=== PATIENT | male | born 1990 | race African-American/Black ===

== ENCOUNTER 2020-08-01 16:52 | Outpatient (REF) | payer OTHER, SELFPAY ==
[2020-08-01 18:20] LABS: Glucose Urine UA NEG (NEG); Leukocyte Esterase Urine NEG (NEG); Nitrite Urine NEG (NEG); PH 7.5 (5.0-8.0); Urine Blood NEG (NEG); Urine Ketones NEG (NEG); Urine Protein NEG (NEG-TRACE)
[2020-08-01 18:28] LABS: Appearance Urine CLEAR; Color Urine YELLOW
[2020-08-01 18:40] LABS: Lithium 0.66 mmol/L (0.60-1.20)
[2020-08-01 18:43] LABS: Anion Gap 14 (12-20); Blood Urea Nitrogen 13 mg/dL (9-16); Calcium 9.6 mg/dL (8.4-10.2); Carbon Dioxide 29 mmol/L (22-29); Chloride 104 mmol/L (96-108); Estimated Glomerular Filt Rate > 60; Glucose Random 82 mg/dL (60-115); Potassium 4.5 mmol/l (3.3-5.1); Sodium 142 mmol/L (135-145)
[2020-08-02 12:00] LABS: CT PCR NOT DETECTED (Not Detect.); NG PCR NOT DETECTED (Not Detect.)
[2020-08-04 08:52] LABS: HIV AB/AG Nonreactive (Nonreactive); HIV Num 1 0.06 S/CO (0.00-0.99)
[2020-08-06 05:07] LABS: Syphilis Screen Nonreactive (Nonreactive)
== END 2020-08-01 16:53 | disposition home or self-care (01) ==
LOC: HO.LAB 16:52
PROVIDERS: PCP Internal Medicine; Visit Provider Internal Medicine
DX: F31.9 Bipolar disorder, unspecified (principal); F90.9 Attention-deficit hyperactivity disorder, unspecified type; Z11.3 Encounter for screening for infections with a predominantly sexual mode of transmission
CPT/HCPCS: 80048; 80178; 81003; 86780; 87389; 87491; 87591

== ENCOUNTER 2020-08-18 10:12 | Outpatient (REF) | payer OTHER, SELFPAY ==
[2020-08-18 14:59] LABS: TSH reflex Free T4 1.44 mIU/mL (0.32-4.0)
[2020-08-19 21:47] LABS: Transglutaminase IgA 1 U/mL
[2020-08-20 05:26] LABS: Gliadin Deamidated IgA Ab 11 Units; Gliadin Deamidated IgG Ab 4 Units
== END 2020-08-18 10:13 | disposition home or self-care (01) ==
LOC: HO.10HDL 10:12
PROVIDERS: Visit Provider Internal Medicine Gastroenterology
DX: K58.2 Mixed irritable bowel syndrome (principal)
CPT/HCPCS: 36415; 83516; 84443

== ENCOUNTER 2020-12-29 10:15 | Outpatient (REF) | payer OTHER, SELFPAY ==
[2020-12-29 11:53] LABS: Lithium 0.74 mmol/L (0.60-1.20)
[2020-12-29 12:10] LABS: Thyroid Stimulating Hormone 1.51 uIU/mL (0.32-4.0)
[2020-12-29 12:21] LABS: Anion Gap 12 (12-20); Blood Urea Nitrogen 12 mg/dL (9-16); Carbon Dioxide 31 mmol/L (22-29); Chloride 105 mmol/L (96-108); Estimated Glomerular Filt Rate > 60; Potassium 4.6 mmol/L (3.3-5.1); Sodium 143 mmol/L (135-145)
== END 2020-12-29 10:16 | disposition home or self-care (01) ==
LOC: HO.LAB 10:15
PROVIDERS: PCP Internal Medicine; Visit Provider Psychiatry & Neurology Psychiatry
DX: Z79.899 Other long term (current) drug therapy (principal)
CPT/HCPCS: 36415; 80051; 80178; 82310; 82565; 84443; 84520

== ENCOUNTER 2021-06-09 15:08 | Outpatient (REF) | payer OTHER, SELFPAY | END 2021-06-09 15:09 | disposition home or self-care (01) | LOC: HO.LAB 15:08 | PROVIDERS: PCP Internal Medicine; Visit Provider Internal Medicine | DX: Z13.89 Encounter for screening for other disorder (principal) ==

== ENCOUNTER → 2021-09-29 16:43 | Outpatient (REF) | payer OTHER, SELFPAY | LOC: HO.SL 16:43 | PROVIDERS: PCP Internal Medicine; Visit Provider Internal Medicine | DX: R06.83 Snoring (principal) | CPT/HCPCS: 95806 ==

== ENCOUNTER 2022-07-13 14:43 | Outpatient (REF) | payer OTHER, SELFPAY ==
[2022-07-14 05:13] LABS: HIV AB/AG Nonreactive (Nonreactive); HIV Num 1 0.08 S/CO (0.00-0.99)
[2022-07-19 16:21] LABS: Chlamydia Pneumoniae IgA <1:16 titer (<1:16); Chlamydia Pneumoniae IgM <1:10 titer (<1:10); Chlamydia Psittaci IgA <1:16 titer (<1:16); Chlamydia Psittaci IgG <1:64 titer (<1:64); Chlamydia Psittaci IgM <1:10 titer (<1:10); Chlamydia Trachomatis IgA <1:16 titer (<1:16); Chlamydia Trachomatis IgG <1:64 titer (<1:64); Chlamydia Trachomatis IgM <1:10 titer (<1:10)
== END 2022-07-13 14:44 | disposition home or self-care (01) ==
LOC: HO.LAB 14:43
PROVIDERS: PCP Internal Medicine; Visit Provider Internal Medicine
DX: Z11.3 Encounter for screening for infections with a predominantly sexual mode of transmission (principal)
CPT/HCPCS: 36415; 86631; 86632; 87389

== ENCOUNTER 2022-08-10 11:46 | Emergency (ER) | payer OTHER, SELFPAY ==
[2022-08-10 11:54] VITALS: BP 121/73; PULSE 88; RESP 18; TEMP 36.3; O2SAT 96; BMI 30.2
[2022-08-10 12:37] LABS: Strep A Nucleic Acid Negative (Negative)
--- NOTE | 2022-08-10 14:25 | ED_ITS ---
HPI - General Adult General Chief complaint: Dental/Oral Stated complaint: Strep throat Time Seen by Provider: 08/10/22 14:00 Source: patient Mode of arrival: ambulatory Limitations: no limitations History of Present Illness HPI narrative: Patient is a 32-year-old male with PMH of bipolar presenting for 2 days of sore throat. Patient reports that he has been having some difficulty swallowing, though denies any difficulty managing secretions. Patient denies any other symptoms including fever, nausea, vomiting, diarrhea, constipation, vision changes, cough, ear pain. No known sick contacts. Onset (ago): day(s) (2) Location: mouth (Throat) Radiation: non-radiation Severity: moderate Quality: stabbing and aching Pain Consistency: intermittent Exacerbating factors: eating Treatments prior to arrival: none Related Data Allergies Allergy/AdvReac Type Severity Reaction Status Date / Time No Known Allergies Allergy Unverified 07/10/20 18:34 Review of Systems Review of Systems: Constitutional : No Weight loss, No Fever, No Chills, No Fatigue, No Malaise ENT/Mouth : + sore throat, No Rhinorrhea Eyes: No Eye Pain, No Swelling, No Redness Cardiovascular : No Chest Pain, No SOB, No Dyspnea on Exertion, No Orthopnea, No Edema, No Palpitations Respiratory : No Cough, No Sputum, No Wheezing Gastrointestinal : No Nausea, No Vomiting, No Diarrhea, No Constipation, No abdominal Pain, No Hematochezia, No Melena Genitourinary : No Dysuria, No Urinary Frequency, No Hematuria, Musculoskeletal : No joint pain, No Myalgias, No Joint Swelling Skin : No Skin Lesions, No rash Neuro : No Weakness, No Numbness, No Dizziness, No Headache Psych : No Anxiety/Panic, No Depression Heme/Lymph: No Bruising, No Bleeding,No Lymphadenopathy All other systems reviewed and are negative PMFSH Past Medical History Attestation statement: The following information was validated with the patient. Source: old records reviewed and nursing notes reviewed Social History Social History Advance Directives: No Advance Directives Information Provided: No Physical Exam ED Vital Signs: Vital Signs - 24 hr 08/10/22 11:54 Temperature 97.4 F Pulse Rate 88 Respiratory Rate 18 Blood Pressure 121/73 Pulse Oximetry 96 Oxygen Delivery Method Room Air BMI result Body Mass Index 30.2 vss Appearance: Alert.? Oriented X3.? No acute distress.? Speaking in full sentences, controlling secretions well. Head: Normocephalic, atraumatic, no step-offs or deformities Eyes: Pupils equal, round and reactive to light.? ENT: Bilateral erythematous tonsils, without exudates, uvula midline .?External ears normal, TMs normal bilaterally and EAC's normal. No pain with manipulation of external ears bilaterally. No mastoid tenderness. Submandibular lymphadenopathy bilaterally. Neck: Normal inspection.? Neck supple.? CVS: Normal heart rate and rhythm.? Pulses normal.? Respiratory: No respiratory distress.? Breath sounds normal.? Abdomen: Soft and nontender.? Skin: Skin warm and dry.? Normal skin color.? Normal skin turgor.? Extremities: No lower extremity edema. 5/5 strength to bilateral upper and lower extremities Neuro: Oriented X 3.? No motor deficit.? No sensory deficit. Steady gait. Course Reevaluation(s) Reevaluation #1: Patient eloped. Medical Decision Making [facility] Narrative Medical decision making narrative: 2:15 32-year-old male with a PMH of bipolar presenting today for 2 days of sore throat and difficulty swallowing. Patient's denies any fevers, cough, shortness of breath, chest pain, nausea, vomiting, diarrhea, any sick contacts. DDX: This is likely viral pharyngitis. He rapid throat swab to rule out strep throat, and a Monospot will be performed to rule out mono. Unlikely epiglottitis, peritonsillar abscess. Plan: - Rapid throat swab to rule out group a strep - mono spot to rule out mononucleosis - expected discharge home with supportive care Medical Records Medical records reviewed: Yes I reviewed the patient's medical records. Lab Data Lab results reviewed: Yes I reviewed the patient's lab results. Labs: Lab Results 08/10/22 Range/Units 12:02 S. pyogenes GrpA RAJANI Negative (Negative) Discharge Plan Discharge Clinical Impression: Acute viral pharyngitis Patient Disposition: Elopement Instructions: Pharyngitis (ED) Additional Instructions: He presented to the emergency department for a sore throat. Eight throughout swab was performed which ruled out strep throat. A Monospot was performed which ruled out Garza. This is likely a viral cause of your spore throat. Please continue adequate fluid intake. Take Tylenol as needed for pain.
== END 2022-08-10 15:22 | disposition left against medical advice (07) ==
PROVIDERS: Emergency Provider Emergency Medicine; PCP Internal Medicine
DX: J02.9 Acute pharyngitis, unspecified (principal); Z79.899 Other long term (current) drug therapy
CPT/HCPCS: 36415; 87651; 99282; 99283

== ENCOUNTER 2022-12-22 15:41 | Outpatient (REF) | payer OTHER, SELFPAY ==
[2022-12-22 17:53] LABS: Appearance Urine Clear; Color Urine Yellow; Glucose Urine UA Negative (Negative); Leukocyte Esterase Urine Negative (Negative); Nitrite Urine Negative (Negative); PH 6.5 (5.0-9.0); Specific Gravity - Urine 1.025 (1.005-1.025); Urine Blood Negative (Negative); Urine Ketones Negative (Negative); Urine Protein Negative (Neg-Trace)
[2022-12-23 07:15] LABS: CT PCR NOT DETECTED (Not Detect.); NG PCR NOT DETECTED (Not Detect.)
[2022-12-24 09:14] LABS: Syphilis Screen Nonreactive (Nonreactive)
[2022-12-24 09:39] LABS: HIV AB/AG Nonreactive (Nonreactive); HIV Num 1 0.06 S/CO (0.00-0.99); ~HepC Num1 0.13 S/CO (0.00-0.79); ~Hepatitis C Antibody Nonreactive (Nonreactive)
== END 2022-12-22 15:42 | disposition home or self-care (01) ==
LOC: HO.LAB 15:41
PROVIDERS: PCP Internal Medicine; Visit Provider Internal Medicine
DX: Z11.3 Encounter for screening for infections with a predominantly sexual mode of transmission (principal)
CPT/HCPCS: 0353U; 81003; 86780; 86803; 87389

== ENCOUNTER 2024-01-16 10:05 | Outpatient (REF) | payer OTHER, SELFPAY ==
--- NOTE | ~2024-01-16 | FL_ITS ---
EXAMINATION: XR FLUOROSCOPY UPPER GI WITH AIR CLINICAL INFORMATION: Reflux; dysphasia. COMPARISON: None. Correlation made with CT abdomen and pelvis 04/07/2020. TECHNIQUE: Fluoroscopic air contrast upper GI examination was performed utilizing standard techniques with thin and thick barium and effervescent granules. Numerous spot images were obtained. FINDINGS: Dual and single contrast images of the esophagus demonstrate normal caliber, contour, and mucosal pattern. No evidence of stricture, mass, or ulcerations identified. Esophageal peristalsis was normal. Probable small type I hiatus hernia. A small amount of gastroesophageal reflux is seen in the distal esophagus. Dual contrast and single contrast images of the stomach demonstrated normal contour. There are multiple tiny areas of contrast pooling in the fundus the stomach that may represents small superficial apthous ulcers. No masses are present. Mild rugal fold thickening is present. Findings suggest gastritis. Contrast freely passed into the gastric antrum and duodenal bulb without delay. Single and air-contrast images of the duodenal bulb demonstrate no abnormality. The duodenal sweep has a normal appearance, course, and mucosal fold appearance. No malrotation. The imaged proximal jejunum has a normal fold pattern and caliber. FLUOROSCOPY TIME: 2 minutes 40 seconds Number of Spot Images: 12 Number of Cine: 8 DOSE AREA PRODUCT: 2404 uGy-m2 (microgray-meter squared) FL/FL upper GI w air IMPRESSION: 1. Mild gastroesophageal reflux. 2. Multiple tiny foci of contrast pooling in the fundus of the stomach that may represent small superficial apthous ulcers. Findings suggest erosive gastritis. Recommend correlation with EGD. 3. Small type I hiatus hernia. This procedure was performed by Leon Schwartz PA-C, and supervised by Dr. Mehta
== END 2024-01-16 10:06 | disposition home or self-care (01) ==
LOC: HO.XRAY 10:05
PROVIDERS: PCP Internal Medicine; Visit Provider Internal Medicine
DX: R13.10 Dysphagia, unspecified (principal)
CPT/HCPCS: 74246

== ENCOUNTER → 2024-01-16 10:10 | Outpatient (BNV) | payer OTHER, SELFPAY | PROVIDERS: PCP Internal Medicine; Visit Provider Physician Assistant Surgical | DX: R13.10 Dysphagia, unspecified (principal); K21.9 Gastro-esophageal reflux disease without esophagitis | CPT/HCPCS: 74246 ==

== ENCOUNTER 2024-01-18 16:01 | Outpatient (REF) | payer OTHER, SELFPAY ==
[2024-01-24 15:47] LABS: H Pylori Breath Test Negative (Negative)
== END 2024-01-18 16:02 | disposition home or self-care (01) ==
LOC: HO.LNP 16:01
PROVIDERS: PCP Internal Medicine; Referring Provider Internal Medicine; Visit Provider Nurse Practitioner Family
DX: K21.9 Gastro-esophageal reflux disease without esophagitis (principal); R13.10 Dysphagia, unspecified; R10.13 Epigastric pain; R14.0 Abdominal distension (gaseous); R10.10 Upper abdominal pain, unspecified; R15.9 Full incontinence of feces; K58.0 Irritable bowel syndrome with diarrhea; K58.1 Irritable bowel syndrome with constipation; R74.01 Elevation of levels of liver transaminase levels
CPT/HCPCS: 83013; 99202

== ENCOUNTER 2024-01-18 16:01 | Outpatient (AMB) | payer OTHER, SELFPAY ==
--- NOTE | 2024-01-18 16:02 | MHC.OFFVIS ---
Intake Vital Signs 01/18/24 16:04 Height 5 ft 9 in Weight 211 lb 10.3 oz BMI 31.3 BP 112/69 Blood Pressure Location Lt brachial Position Sitting Pulse 72 Pulse Source Pulse Oximeter Pulse Oximetry (%) 99 Oxygen Delivery Method Room Air Intake Visit Reasons: dysphagia Intake Note: pt here for dysphagia, abdominal pain, no vomiting or nausea. Information Interpreted: non-clinical & clinical Accompanied by: Self / Same As Patient Allergies No Known Allergies Allergy (Unverified 07/10/20 18:34) HPI dysphagia HPI Details 33-year-old male with no significant past medical history is here today for initial consultation. Patient was sent to us by his PCP. Patient had upper GI series done couple days ago, results are pending. Patient reports severe epigastric discomfort postprandially. Patient feels burning sensation in the upper abdomen. Occasional postprandial loose stools, however no diarrhea. Patient denies melena, hematochezia, unintentional weight loss or ribbon like stools. No family history of inflammatory bowel disease. Patient also reports pain occasionally and right upper quadrant and left upper quadrant. Patient reports postprandial abdominal bloating. Not on any particular diet. Has not noticed if any particular food trigger his symptoms. Patient denies symptoms starting suddenly. Patient reports that symptoms getting worse over time. Patient reports dyspepsia without dysphagia or odynophagia. [facility] Social History (Updated 01/18/24 @ 16:08 by Tyra Marshall MA) Household Members: Family Alcohol intake: current Alcohol intake frequency: holidays/special occasions only Patient Tobacco Use Status: Never used Tobacco Review of Systems Const Denies weight gain and Denies weight loss ENT Reports no additional complaints, Denies dysphagia and Denies odynophagia Card Reports no additional complaints Resp Reports no additional complaints GI Reports abdominal pain (Epigastric), Denies belching, Denies melena, Reports bloating, Denies change in bowel habits, Denies dysphagia, Denies excessive flatus, Denies dyspepsia, Reports heartburn, Denies diarrhea, Denies nausea, Denies odynophagia and Denies vomiting Reports no additional complaints Musc Reports no additional complaints Neuro Reports no additional complaints Psych Reports no additional complaints Endo Reports no additional complaints Physical Exam Vital Signs: Last Vital Signs Pulse 72 01/18/24 16:04 BP 112/69 01/18/24 16:04 Pulse Ox 99 01/18/24 16:04 Oxygen Delivery Method Room Air 01/18/24 16:04 BMI result Body Mass Index 31.3 Const General: healthy appearing and no acute distress Nutritional Appearance: obese Orientation/consciousness: patient oriented x3 Resp Effort & Inspection: normal respiratory effort, able to speak in complete sentences, no tracheal deviation and symmetric chest movement Auscultation: clear to auscultation bilaterally Cardio Rate: regular rate GI Inspection: Yes normal to inspection, No distended and Yes obesity Palpation (GI): Soft to palpation, not firm, nontender and No hepatosplenomegaly present Auscultation: normal bowel sounds General: Yes no CVA tenderness Back/Spine/Pelvis Back: no CVA tenderness Skin General skin exam: elasticity normal, turgor normal and dry skin Neuro General: patient oriented x3 Psych Appearance: grossly normal Mental Status: mental status grossly normal Results Reviewed Results Reviewed: UPPER GI SERIES 01/16/2024 IMPRESSION: 1. Mild gastroesophageal reflux. 2. Multiple tiny foci of contrast pooling in the fundus of the stomach that may represent small superficial apthous ulcers. Findings suggest erosive gastritis. Recommend correlation with EGD. 3. Small type I hiatus hernia. Assessment & Plan Assessment & Plan (1) Postprandial epigastric pain: Code(s): R10.13 - Epigastric pain (2) Postprandial abdominal bloating: Code(s): R14.0 - Abdominal distension (gaseous) (3) Postprandial diarrhea: Code(s): K52.9 - Noninfective gastroenteritis and colitis, unspecified (4) GERD (gastroesophageal reflux disease): Code(s): K21.9 - Gastro-esophageal reflux disease without esophagitis Qualifiers: Esophagitis presence: esophagitis presence not specified Qualified Code(s): K21.9 - Gastro-esophageal reflux disease without esophagitis (5) Abdominal bloating: Code(s): R14.0 - Abdominal distension (gaseous) (6) Abdominal pain: Code(s): R10.9 - Unspecified abdominal pain Qualifiers: Abdominal location: upper abdomen, unspecified Qualified Code(s): R10.10 - Upper abdominal pain, unspecified Plan Will do H pylori testing in the office today and treat empirically if positive. Will start patient on PPI and H2 samuel. Patient was instructed to avoid dietary triggers and late night snacking. Staying upright for minimal 3 hours after meals discussed with patient. Will check for celiac, rule out pancreatitis, malabsorption. Will check vitamin B12, folate, vitamin-D level. Check fecal calprotectin and CRP to rule out IBD. I will see patient in 5 weeks, sooner on as needed basis. He is agreeable to this plan and verbalizes understanding of instructions. He was given the opportunity to ask questions and all questions answered. Thank you for allowing me to participate in his care Orders: Orders H Pylori Breath Test 01/19/24 K21.9 - Gastro-esophageal reflux disease without esophagitis Calprotectin, Fecal 01/18/24 R15.9 - Full incontinence of feces Transglutaminase Ab IgG 01/18/24 R10.9 - Unspecified abdominal pain TSH reflex Free T4 01/18/24 K59.00 - Constipation, unspecified Lipase 01/18/24 R10.9 - Unspecified abdominal pain Vitamin B12 and Folate 01/18/24 R19.7 - Diarrhea, unspecified C Reactive Protein 01/18/24 K58.9 - Irritable bowel syndrome without diarrhea Transglutaminase IgA 01/18/24 R10.9 - Unspecified abdominal pain Liver Panel 01/18/24 R74.01 - Elevation of levels of liver transaminase levels Vitamin D 25-OH (D2 and D3) 01/18/24 E55.9 - Vitamin D deficiency, unspecified Medications: New omeprazole 20 mg PO DAILY 30 caps 3RF K21.9 - Gastro-esophageal reflux disease without esophagitis famotidine (Pepcid) 20 mg PO BEDTIME 30 tabs 3RF K21.9 - Gastro-esophageal reflux disease without esophagitis Coding Level of Care Code New Pt Level 4 (18751) Diagnoses Postprandial epigastric pain R10.13 Postprandial abdominal bloating R14.0 Postprandial diarrhea K52.9 Gastroesophageal reflux disease, unspecified whether esophagitis present K21.9 Esophagitis presence: esophagitis presence not specified Abdominal bloating R14.0 Pain of upper abdomen R10.10 Abdominal location: upper abdomen, unspecified Time Spent (min) 45 Comment 30 minutes spent with patient and additional 15 minutes spent reviewing his records
[2024-01-18 16:04] VITALS: BP 112/69; PULSE 72; O2SAT 99; BMI 31.3
== END 2024-01-18 16:50 | disposition home or self-care (01) ==
LOC: HO.HGI 16:01
PROVIDERS: PCP Internal Medicine; Referring Provider Internal Medicine; Visit Provider Nurse Practitioner Family
DX: R10.13 Epigastric pain (principal); R14.0 Abdominal distension (gaseous); K52.9 Noninfective gastroenteritis and colitis, unspecified; K21.9 Gastro-esophageal reflux disease without esophagitis; R10.10 Upper abdominal pain, unspecified
CPT/HCPCS: 99204

== ENCOUNTER 2024-02-02 15:25 | Outpatient (REF) | payer OTHER, SELFPAY ==
[2024-02-02 17:22] LABS: Alanine Aminotransferase 23 U/L (0-40); Albumin Level 4.4 g/dL (3.5-5.0); Alkaline Phosphatase 67 U/L (39-117); Aspartate Amino Transferase 20 U/L (5-37); Bilirubin Direct 0.2 mg/dL (0.0-0.5); Bilirubin Total 0.5 mg/dL (0.0-1.0); C Reactive Protein 0.41 mg/dL (< or = 0.50); Lipase 16 U/L (8-78); Total Protein 7.4 g/dL (6.5-8.0)
[2024-02-02 17:38] LABS: TSH reflex Free T4 0.95 uIU/mL (0.32-4.0)
[2024-02-02 17:51] LABS: Folate 13.4 ng/mL (> or = 4.0); Vitamin B12 631 pg/mL (200-900)
[2024-02-06 15:18] LABS: Vitamin D 25-OH, D2 <4 ng/mL; Vitamin D 25-OH, D3 40 ng/mL; Vitamin D 25-OH, Total 40 ng/mL (30-100)
[2024-02-07 14:58] LABS: Transglutaminase Ab IgG <1.0 U/mL; Transglutaminase IgA <1.0 U/mL
== END 2024-02-02 15:26 | disposition home or self-care (01) ==
LOC: HO.LAB 15:25
PROVIDERS: PCP Internal Medicine; Visit Provider Nurse Practitioner Family
DX: K59.00 Constipation, unspecified (principal); R10.9 Unspecified abdominal pain; R19.7 Diarrhea, unspecified; K58.9 Irritable bowel syndrome, unspecified; R74.01 Elevation of levels of liver transaminase levels; E55.9 Vitamin D deficiency, unspecified
CPT/HCPCS: 36415; 80076; 82306; 82607; 82746; 83690; 84443; 86140; 86364

== ENCOUNTER 2024-02-28 12:08 | Outpatient (AMB) | payer OTHER, SELFPAY ==
--- NOTE | 2024-02-28 12:27 | A.OFFVIS_ITS ---
Vital Signs 02/28/24 12:28 Height 5 ft 9 in Weight 205 lb 0.478 oz BMI 30.3 BP 118/59 L Blood Pressure Location Lt brachial Position Sitting Pulse 78 Intake Visit Reasons: 5 week follow up Intake Note: Constantine presents in the office as a 5 week follow up. CC: No concerns today at this time. Operating Cost Clerk Required: No Allergies copper Allergy (Mild, Verified 02/28/24 12:36) Unknown HPI HPI 5 week follow up: Details: LAST VISIT Postprandial epigastric pain Postprandial abdominal bloating Postprandial diarrhea GERD (gastroesophageal reflux disease) Abdominal bloating Abdominal pain Plan Will do H pylori testing in the office today and treat empirically if positive. Will start patient on PPI and H2 samuel. Patient was instructed to avoid dietary triggers and late night snacking. Staying upright for minimal 3 hours after meals discussed with patient. Will check for celiac, rule out pancreatitis, malabsorption. Will check vitamin B12, folate, vitamin-D level. Check fecal calprotectin and CRP to rule out IBD. I will see patient in 5 weeks, sooner on as needed basis. He is agreeable to this plan and verbalizes understanding of instructions. He was given the opportunity to ask questions and all questions answered. ? Thank you for allowing me to participate in his care Orders Orders H Pylori Breath Test 01/19/24 K21.9 Calprotectin, Fecal 01/18/24 R15.9 Transglutaminase Ab IgG 01/18/24 R10.9 TSH reflex Free T4 01/18/24 K59.00 Lipase 01/18/24 R10.9 Vitamin B12 and Folate 01/18/24 R19.7 C Reactive Protein 01/18/24 K58.9 Transglutaminase IgA 01/18/24 R10.9 Liver Panel 01/18/24 R74.01 Vitamin D 25-OH (D2 and D3) 01/18/24 E55.9 Medications New omeprazole 20 mg PO DAILY 30 caps 3RF K21.9 famotidine (Pepcid) 20 mg PO BEDTIME 30 tabs 3RF K21.9 TODAY'S VISIT Patient is here today for follow-up and to discuss lab results and upper GI series results. Patient states that he ran out of omeprazole and has not been on it for about a week or so. Patient states that when he started taking it he was feeling well. His symptoms of acid reflux improved. Patient no longer had dyspepsia. Patient reports also having better bowel movement after taking omeprazole. All of patient's blood work came back negative for any acute findings. H pylori negative. Upper GI series showed mild gastric reflux and multiple small areas in the fundus of the stomach questioning ulceration or inflammation. Patient denies any nausea or vomiting. Denies any other GI concerning symptoms. PFSH Surgical History (Updated 02/28/24 @ 12:36 by KIMO Shah) Hx of colonoscopy Social History Household Members: Family Alcohol intake: current Alcohol intake frequency: holidays/special occasions only Patient Tobacco Use Status: Never used Tobacco Review of Systems Const Denies weight gain and Denies weight loss ENT Reports no additional complaints, Denies dysphagia and Denies odynophagia Card Reports no additional complaints Resp Reports no additional complaints GI Denies abdominal pain, Denies belching, Denies melena, Denies bloating, Denies change in bowel habits, Denies dysphagia, Denies excessive flatus, Denies dyspepsia, Denies heartburn, Denies diarrhea, Denies loose stools, Denies nausea, Denies odynophagia and Denies vomiting Reports no additional complaints Musc Reports no additional complaints Neuro Reports no additional complaints Psych Reports no additional complaints Endo Reports no additional complaints Physical Exam Vital Signs: Last Vital Signs Pulse 78 02/28/24 12:28 BP 118/59 L 02/28/24 12:28 BMI result Body Mass Index 30.3 Const General: healthy appearing and no acute distress Nutritional Appearance: obese Orientation/consciousness: patient oriented x3 Resp Effort & Inspection: normal respiratory effort, able to speak in complete sentences, no tracheal deviation and symmetric chest movement Auscultation: clear to auscultation bilaterally Cardio Rate: regular rate GI Inspection: Yes normal to inspection, No distended and Yes obesity Palpation (GI): Soft to palpation, not firm, nontender and No hepatosplenomegaly present Auscultation: normal bowel sounds General: Yes no CVA tenderness Back/Spine/Pelvis Back: no CVA tenderness Skin General skin exam: elasticity normal, turgor normal and dry skin Neuro General: patient oriented x3 Psych Appearance: grossly normal Mental Status: mental status grossly normal Results Reviewed Results Reviewed: Laboratory Tests 02/02/24 15:33 Total Bilirubin 0.5 Direct Bilirubin 0.2 AST 20 ALT 23 Alkaline Phosphatase 67 C-Reactive Protein 0.41 Lipase 16 Vitamin B12 631 25-OH Vitamin D Total 40 Folate 13.4 TSH 0.95 Tiss Transglutamin IgG <1.0 Tiss Transglutamin IgA <1.0 UPPER GI SERIES 01/16/2024 FINDINGS: Dual and single contrast images of the esophagus demonstrate normal caliber, contour, and mucosal pattern. No evidence of stricture, mass, or ulcerations identified. Esophageal peristalsis was normal. Probable small type I hiatus hernia. A small amount of gastroesophageal reflux is seen in the distal esophagus. Dual contrast and single contrast images of the stomach demonstrated normal contour. There are multiple tiny areas of contrast pooling in the fundus the stomach that may represents small superficial apthous ulcers. No masses are present. Mild rugal fold thickening is present. Findings suggest gastritis. Contrast freely passed into the gastric antrum and duodenal bulb without delay. Single and air-contrast images of the duodenal bulb demonstrate no abnormality. The duodenal sweep has a normal appearance, course, and mucosal fold appearance. No malrotation. The imaged proximal jejunum has a normal fold pattern and caliber. FLUOROSCOPY TIME: 2 minutes 40 seconds Number of Spot Images: 12 Number of Cine: 8 DOSE AREA PRODUCT: 2404 uGy-m2 (microgray-meter squared) FL/FL upper GI w air IMPRESSION: 1. Mild gastroesophageal reflux. 2. Multiple tiny foci of contrast pooling in the fundus of the stomach that may represent small superficial apthous ulcers. Findings suggest erosive gastritis. Recommend correlation with EGD. 3. Small type I hiatus hernia. Assessment & Plan Assessment & Plan (1) Postprandial epigastric pain: Code(s): R10.13 - Epigastric pain (2) Postprandial abdominal bloating: Code(s): R14.0 - Abdominal distension (gaseous) (3) Postprandial diarrhea: Code(s): K52.9 - Noninfective gastroenteritis and colitis, unspecified (4) GERD (gastroesophageal reflux disease): Code(s): K21.9 - Gastro-esophageal reflux disease without esophagitis Qualifiers: Esophagitis presence: esophagitis presence not specified Qualified Code(s): K21.9 - Gastro-esophageal reflux disease without esophagitis (5) Abdominal bloating: Code(s): R14.0 - Abdominal distension (gaseous) (6) Abdominal pain: Code(s): R10.9 - Unspecified abdominal pain Qualifiers: Abdominal location: epigastric Qualified Code(s): R10.13 - Epigastric pain Plan Patient will continue omeprazole. Upper GI series showed mild contrast pooling in the phone this the stomach questioning superficial or SIRS versus inflammation. Patient will be sent for upper endoscopy to rule out gastritis, duodenitis, esophagitis, gastric or peptic ulcers. Patient was encouraged to avoid dietary triggers and late night snacking. Staying upright for minimum 3 hours after meals discussed with patient. Increase fluid intake and activity to promote better bowel motility. I will see patient after the procedure, sooner on as needed basis. Patient is agreeable to this plan and verbalizes understanding of instructions. He was given the opportunity to ask questions and all questions answered. Thank you for allowing me to participate in his care Medications: Refilled omeprazole 20 mg PO DAILY 90 caps 3RF K21.9 - Gastro-esophageal reflux disease without esophagitis Coding Level of Care Code Est Pt Level 4 (20588) Diagnoses Postprandial epigastric pain R10.13 Postprandial abdominal bloating R14.0 Postprandial diarrhea K52.9 Gastroesophageal reflux disease, unspecified whether esophagitis present K21.9 Esophagitis presence: esophagitis presence not specified Abdominal bloating R14.0 Epigastric pain R10.13 Abdominal location: epigastric Time Spent (min) 35 Comment 20 minutes spent with patient and additional 15 minutes spent reviewing his records
[2024-02-28 12:28] VITALS: BP 118/59; PULSE 78; BMI 30.3
== END 2024-02-28 14:03 | disposition home or self-care (01) ==
PROVIDERS: PCP Internal Medicine; Visit Provider Nurse Practitioner Family
DX: R10.13 Epigastric pain (principal); R14.0 Abdominal distension (gaseous); K52.9 Noninfective gastroenteritis and colitis, unspecified; K21.9 Gastro-esophageal reflux disease without esophagitis
CPT/HCPCS: 99214

== ENCOUNTER → 2024-02-28 12:08 | Outpatient (BNVA) | payer OTHER, SELFPAY | PROVIDERS: PCP Internal Medicine; Visit Provider Nurse Practitioner Family | DX: R10.13 Epigastric pain (principal); R14.0 Abdominal distension (gaseous); K52.9 Noninfective gastroenteritis and colitis, unspecified; K21.9 Gastro-esophageal reflux disease without esophagitis; Z79.899 Other long term (current) drug therapy | CPT/HCPCS: 99212 ==

== ENCOUNTER 2024-04-08 14:07 | Emergency (ER) | payer OTHER, SELFPAY ==
[2024-04-08 14:09] VITALS: BP 116/63; PULSE 78; RESP 17; TEMP 36.6; O2SAT 98; BMI 29.5
--- NOTE | 2024-04-08 14:10 | ED_ITS ---
HPI - General Adult General Chief complaint: General Medical Stated complaint: exposed to hepatitis Time Seen by Provider: 04/08/24 14:34 Source: patient Mode of arrival: ambulatory Limitations: no limitations History of Present Illness ED Provider: Payton Eduardo PA-C HPI narrative: Patient is a 33 year old assigned male at with no reported medical history presenting to the emergency department today with a sore throat and hepatitis exposure. Patient states that 1 hour prior to arrival in the ER today he thought he saw a tonsil stone, tried to remove it, and injured his throat. Patient states that he was also exposed to someone with hepatitis C. Patient states that had oral sex with the individual and intercourse (protected with condoms). Patient states that he wasn't told until after the sexual encounter that the individual was hepatitis C positive. Patient denies any dizziness, lightheadedness, abdominal pain, nausea, vomiting, fever, chills, blurry vision, double vision, loss of vision, chest pain, difficulty breathing, shortness of breath, back pain, night sweats, pain with urination, increased urinary frequency, increased urinary urgency, blood in his urine or stool, syncope or a near syncopal episode, bowel incontinence, bladder incontinence, or any other complaints at this time. Relieving factors: none Exacerbating factors: none Associated symptoms: denies other symptoms Treatments prior to arrival: none Related Data Home Medications ?Medication ?Instructions ?Recorded ?Confirmed cariprazine 4.5 mg capsule 4.5 mg PO DAILY 01/18/24 (Vraylar) doxycycline hyclate 100 mg tablet 100 mg PO BID 01/18/24 lamotrigine 200 mg tablet 200 mg PO DAILY 01/18/24 bupropion HCl 300 mg 24 hr tablet, 300 mg PO DAILY 02/28/24 extended release escitalopram oxalate 20 mg tablet 20 mg PO DAILY 02/28/24 Previous Rx's ?Medication ?Instructions ?Recorded famotidine 20 mg tablet (Pepcid) 20 mg PO BEDTIME #30 tabs 01/18/24 omeprazole 20 mg capsule,delayed 20 mg PO DAILY #90 caps 02/28/24 release doxycycline hyclate 100 mg tablet 100 mg PO BID 7 days #14 tabs 04/08/24 penicillin V potassium 500 mg 500 mg PO BID 10 days #20 tabs 04/08/24 tablet Allergies Allergy/AdvReac Type Severity Reaction Status Date / Time copper Allergy Mild Unknown Verified 04/08/24 14:11 Review of Systems 2 Constitutional: Constitutional: Reports no additional constitutional complaints, Denies chills, Denies fever(s) and Denies night sweats Eyes: Eyes: Reports no additional eye complaints, Denies blurry vision, Denies change in vision, Denies diplopia, Denies eye discharge, Denies loss of vision and Denies eye pain ENT: Denies dizziness and Reports sore throat Cardiovascular: Cardiovascular: Reports no additional cardiovascular complaints, Denies chest pain, Denies lightheadedness, Denies Loss of Consciousness and Denies dyspnea Respiratory: Respiratory: Reports no additional respiratory complaints and Denies dyspnea Gastrointestinal: Gastrointestinal: Reports no additional gastrointestinal complaints, Denies abdominal pain, Denies melena, Denies hematochezia, Denies change in bowel habits and Denies change in stool character Genitourinary: Genitourinary: Reports no additional male genitourinary complaints, Denies hematuria, Denies oliguria, Denies difficulty urinating, Denies dysuria, Denies urinary frequency, Denies urinary hesitancy, Denies urinary incontinence and Denies urinary urgency Musculoskeletal: Musculoskeletal: Reports no additional musculoskeletal complaints, Denies numbness and Denies tingling Neurologic: Denies dizziness, Denies loss of vision, Denies numbness and Denies tingling Psychiatric: Psychiatric: Reports no additional psychiatric complaints Endocrine: Endocrine: Reports no additional endocrine complaints Hematologic/Lymphatic: Hematologic/Lymphatic: Reports no additional hematologic/lymphatic complaints Allergic/Immunologic: Allergic/Immunologic: Reports no additional allergic/immunologic complaints [facility] Past Medical History Attestation statement: The following information was validated with the patient. Source: old records reviewed and nursing notes reviewed Surgical History Hx of colonoscopy Social History Social History Household Members: Family Alcohol intake: current Alcohol intake frequency: holidays/special occasions only Patient Tobacco Use Status: Never used Tobacco Advance Directives: No Advance Directives Information Provided: Yes Physical Exam ED Vital Signs: Vital Signs - 24 hr 04/08/24 14:09 Temperature 98 F Pulse Rate 78 Respiratory Rate 17 Blood Pressure 116/63 Pulse Oximetry 98 Oxygen Delivery Method Room Air BMI result Body Mass Index 29.5 Const General: cooperative, no acute distress, alert and awake Nutritional Appearance: well nourished Orientation/consciousness: patient oriented x3 Limitations: no limitations HENMT Head: Yes normal to inspection and Yes atraumatic Ears: hearing grossly normal bilaterally and external ears normal General nose exam: Normal external nose present, no nasal discharge noted and no epistaxis Face and sinus: Yes normal facial exam, No abrasion and No laceration Mouth: Normal oral and palatal mucosa present, no drooling and no muffled voice Throat: Yes abnormal tonsil (bilateral erythema and exudates, small abrasion to the right tonsil) Eyes General: appearance normal, both eyes and all related structures Periorbital: periorbital findings normal Eyelids: Yes eyelids normal Conjunctivae: conjunctivae normal Pupils: Equal, round and reactive pupils present EOM: EOMs intact bilaterally Neck Neck: Yes normal visual inspection, Yes full ROM and Yes no lymphadenopathy Chest Chest palpation & inspection: normal inspection of the chest Resp Effort & Inspection: normal respiratory effort and able to speak in complete sentences GI Inspection: Yes normal to inspection Neuro General: patient oriented x3 and moves all extremities Cranial nerves: Yes Equal, round and reactive pupils present Cognition (Neuro): normal cognition Motor exam (neuro): 5/5 motor strength present throughout Sensory Exam: Normal double simultaneous stimulation for sensation Coordination: [id number] test normal Extrem General: Yes normal to inspection, Yes full ROM and Yes capillary refill normal Psych Appearance: grossly normal Mental Status: mental status grossly normal Affect: normal affect Attitude: cooperative Thought process: Normal thought process present Thought content: Normal thought content present Insight: Good insight present (Psych) Course Course Course Narrative: This is a Rapid Medical Examination (RME) performed by Gracia Morales PA-C in triage. Full HPI, ROS, assessment and treatment plan per primary provider in the Main ED. 33 yo male here for eval of sore throat x3 days. Reports attempting to remove a tonsil stone from his right tonsil earlier today and the area began bleeding. no known sick contacts. denies assoc fever, chills, n/v, odynophagia, dysphagia. Adds that he had intercourse with an individual who has hepatitis about 1 week ago and is concerned this may be related. b/l tonsilar edema. uvula midline. controlling secretions, speaking in complete sentences. Plan: strep swab ordered. +/- labs per primary provider Medications Administered Discontinued Medications Generic Name Dose Route Start Last Admin Trade Name Griffin PRN Reason Stop Dose Admin Ceftriaxone Sodium 500 mg/ 0 mg 04/08/24 14:41 04/08/24 15:12 Lidocaine HCl 1 ml IM 04/08/24 14:42 1 kit ONCE ONE Administration Doxycycline Monohydrate 100 mg 04/08/24 14:41 04/08/24 15:13 Doxycycline Monohydrate 100 Mg Capsule PO 04/08/24 14:42 100 mg ONCE ONE Administration Penicillin V Potassium 500 mg 04/08/24 14:41 04/08/24 15:13 Penicillin V Potassium 250 Mg Tablet PO 04/08/24 14:42 500 mg ONCE ONE Administration Medical Decision Making Medical Decision Making [facility] Narrative: Patient is a 33 year old assigned male at with no reported medical history presenting to the emergency department today with a sore throat and hepatitis C exposure. Patient's physical exam was as noted in the physical exam portion of this note. Patient's blood work was unremarkable. Patient has a CT/NG urine, Hepatitis panel, HIV, and syphillis testing pending. Patient's strep test was positive. I explained my physical exam findings as well as all test results to the patient. I answered all questions asked by the patient. Patient received STI prophylaxis while in the department. I stressed the importance of the patient taking his medication as prescribed. I stressed the importance of the patient following up with his primary care provider. I stressed the importance of the patient returning to the emergency department immediately if his symptoms were to worsen or if he were to develop any dizziness, shortness of breath, difficulty breathing, chest pain, blurry vision, loss of vision, nausea, vomiting, abdominal pain, fever, chills, back pain, or any other complaints. Patient verbalized agreement and understanding with this treatment plan and discharge. Differential Diagnosis Differential Diagnoses: The differential diagnosis associated with the presentation includes Strep pharyngitis Sore throat Hepatitis C exposure STI exposure Admission/Observation Consideration of admission/observation: Escalation of care including admission/observation considered Patient would have been admitted to the hospital had his work up had any findings where hospital admission was appropriate and his clinical presentation warranted hospital admission. Lab Data [facility] Lab Attestation statement: I reviewed the patient's lab results. My interpretation of these results are in the MDM Rationale portion of this note. 04/08/24 15:05 04/08/24 15:05 Labs: Lab Results 04/08/24 04/08/24 Range/Units 14:33 15:05 WBC 8.3 (4.8-10.8) X10*3/uL RBC 5.43 (4.60-5.80) X10*6/uL Hgb 15.8 (14.0-18.0) g/dl Hct 46.2 (42.0-52.0) % MCV 85.1 (80.0-98.0) fL MCH 29.1 (27.0-33.0) pg MCHC 34.2 (31.0-36.0) g/dl RDW 12.7 (11.0-16.0) % Plt Count 202 (160-400) X10*3/uL MPV 9.7 (9.4-12.4) fL Immature Gran % (Auto) 0.2 (0.0-0.4) % Neut % (Auto) 72.7 (45-73) % Lymph % (Auto) 17.6 L (20-40) % [place] % (Auto) 7.9 (2-11) % Eos % (Auto) 1.1 (0-4) % Baso % (Auto) 0.5 (0-2) % Lymph # (Auto) 1.5 (1.2-4.9) X10*3/uL [place] # (Auto) 0.7 (0.1-1.2) X10*3/uL Eos # (Auto) 0.1 (0.0-0.4) X10*3/uL Baso # (Auto) 0.0 (0.0-0.2) X10*3/uL Abs Immat Gran (auto) 0.02 (0.00-0.03) X10*3/uL Absolute Neuts (auto) 6.0 (2.0-8.3) x10*3/uL Absolute Nucleated RBC 0.000 (0.0-0.012) X10*3/uL Nucleated RBC % (auto) 0.0 (0.0-0.2) /100WBC Sodium 145 (135-145) mmol/L Potassium 4.2 (3.3-5.1) mmol/L Chloride 106 (96-108) mmol/L Carbon Dioxide 30 H (22-29) mmol/L Anion Gap 13 (12-20) BUN 12 (9-16) mg/dL Creatinine 1.04 (0.5-1.4) mg/dL Estim Creat Clear Calc 112.4 Estimated GFR > 60 Random Glucose 101 (60-115) mg/dL Calcium 9.9 D (8.4-10.2) mg/dL Total Bilirubin 0.6 (0.0-1.0) mg/dL AST 17 (5-37) U/L ALT 21 (0-40) U/L Alkaline Phosphatase 69 (39-117) U/L Total Protein 7.7 (6.5-8.0) g/dL Albumin 4.6 (3.5-5.0) g/dL S. pyogenes GrpA RAJANI Positive A (Negative) Prescription Management I considered prescription management with: Antibiotic (patient prescribed antibiotics for strep pharyngitis and STI exposure) Discharge Plan Discharge Clinical Impression: Strep pharyngitis, Possible exposure to STI Patient Disposition: Home, Self-Care Instructions: Sexually Transmitted Diseases (ED), Male Condom Use (ED), Safe Sex Practices (ED), Strep Throat (DC) Additional Instructions: Take your antibiotic as prescribed. Your test results showed that you were positive for strep. Your blood work is unremarkable however, some of it is still pending. If those pending tests are POSITIVE, we will call you. Follow up with your primary care provider. Return to the emergency department immediately if your symptoms worsen or if you develop any dizziness, shortness of breath, difficulty breathing, chest pain, blurry vision, loss of vision, nausea, vomiting, abdominal pain, fever, chills, back pain, or any other complaints. - Please see the information below about our Patient Portal. If you are not yet enrolled in the [facility] Patient Portal, you will receive an enrollment email invitation following your visit to any [facility] care setting. You may also self-enroll in the Patient Portal by visiting our website: [email or web address] The following information is required to access the Patient Portal: - Your [facility] Medical Record Number - Your personal home email address (must match what is in your electronic medical record, Registration staff can assist with this) - Name - Date of Capabilities of the Patient Portal: - Message some providers - View upcoming appointments - Access your health summary, medical history, and visit history - View current conditions and allergies - View procedure and lab results - View your medications, including guidelines, side effects, and precautions - Complete pre-appointment questionnaires requested by your provider - Ready summary reports of your office visits and procedures To access the Patient Portal Mobile [employer], follow these directions: - Search [employer] in the Juan Store or [employer] Store - Download the Juan - Search for [facility] - Enter your login/password Prescriptions: New penicillin V potassium 500 mg tablet 500 mg PO BID 10 Days Qty: 20 0RF doxycycline hyclate 100 mg tablet 100 mg PO BID 7 Days Qty: 14 0RF No Action lamotrigine 200 mg tablet 200 mg PO DAILY Vraylar 4.5 mg capsule 4.5 mg PO DAILY doxycycline hyclate 100 mg tablet 100 mg PO BID famotidine [Pepcid] 20 mg tablet 20 mg PO BEDTIME Qty: 30 3RF bupropion HCl 300 mg tablet extended release 24 hr 300 mg PO DAILY escitalopram oxalate 20 mg tablet 20 mg PO DAILY omeprazole 20 mg capsule,delayed release(DR/EC) 20 mg PO DAILY Qty: 90 3RF Referrals: Angel Ann MD [Primary Care Provider] - Stand Alone Forms: Work/School Release Print Language: Brazilian
[2024-04-08 14:47] LABS: IDNOW Serial# 08D9AD1C; Strep A Nucleic Acid Positive (Negative)
[2024-04-08 15:09] LABS: MANUAL DIFF FLAG NO
[2024-04-08 15:12] LABS: Basophils Percent Auto 0.5 % (0-2); Eosinophils Absolute Auto 0.1 X10*3/uL (0.0-0.4); Eosinophils Percent Auto 1.1 % (0-4); Hematocrit 46.2 % (42.0-52.0); Hemoglobin 15.8 g/dl (14.0-18.0); Imm Gran Abs Auto 0.02 X10*3/uL (0.00-0.03); Imm Gran Pct Auto 0.2 % (0.0-0.4); Lymphocytes Absolute Auto 1.5 X10*3/uL (1.2-4.9); Lymphocytes Percent Auto 17.6 % (20-40); Mean Corpuscular HGB Conc 34.2 g/dl (31.0-36.0); Mean Corpuscular Hemoglobin 29.1 pg (27.0-33.0); Mean Corpuscular Volume 85.1 fL (80.0-98.0); Mean Platelet Volume 9.7 fL (9.4-12.4); Monocytes Absolute Auto 0.7 X10*3/uL (0.1-1.2); Monocytes Percent Auto 7.9 % (2-11); Neutrophils Percent Auto 72.7 % (45-73); Platelet Count 202 X10*3/uL (160-400); Red Blood Count 5.43 X10*6/uL (4.60-5.80); Red Cell Distribution Width 12.7 % (11.0-16.0); White Blood Count 8.3 X10*3/uL (4.8-10.8)
[2024-04-08] MEDS: cefTRIAXone sodium 500 MG, Lidocaine HCl 1 % MPF 1 ML IM (15:12)
[2024-04-08] MEDS: Penicillin V Potassium 250 MG TABLET 500 MG PO (15:13)
[2024-04-08] MEDS: Doxycycline Monohydrate 100 MG CAPSULE PO (15:13)
[2024-04-08 15:28] LABS: Alanine Aminotransferase 21 U/L (0-40); Albumin Level 4.6 g/dL (3.5-5.0); Alkaline Phosphatase 69 U/L (39-117); Anion Gap 13 (12-20); Aspartate Amino Transferase 17 U/L (5-37); Bilirubin Total 0.6 mg/dL (0.0-1.0); Blood Urea Nitrogen 12 mg/dL (9-16); Calcium 9.9 mg/dL (8.4-10.2); Carbon Dioxide 30 mmol/L (22-29); Chloride 106 mmol/L (96-108); Creatinine Clr Calc Pharmacy 112.4; Estimated Glomerular Filt Rate > 60; Glucose Random 101 mg/dL (60-115); Potassium 4.2 mmol/L (3.3-5.1); Sodium 145 mmol/L (135-145); Total Protein 7.7 g/dL (6.5-8.0)
[2024-04-08 16:03] VITALS: BP 116/63; PULSE 78; RESP 17; TEMP 36.6; O2SAT 98
[2024-04-09 03:27] LABS: Syphilis Screen Nonreactive (Nonreactive)
[2024-04-09 04:25] LABS: HBS Num1 1.06 mIU/mL (0-7.99); HBc Num1 0.13 S/CO (0.00-0.79); HBsAGNum1 0.22 S/CO (0.00-0.99); HIV AB/AG Nonreactive (Nonreactive); HIV Num 1 0.06 S/CO (0.00-0.99); Hepatitis A Antibody IgM 0.15 Index (0-0.79); Hepatitis B Core Antibody Nonreactive (Nonreactive); Hepatitis B Surface Antigen Negative (Negative); ~Hepatitis A Antibody IgM Nonreactive (Nonreactive); ~Hepatitis B Surface Antibody NONREACTIVE (Nonreactive); ~Hepatitis C Antibody Nonreactive (Nonreactive)
[2024-04-09 05:59] LABS: CT PCR NOT DETECTED (Not Detect.); NG PCR NOT DETECTED (Not Detect.)
== END 2024-04-08 16:04 | disposition home or self-care (01) ==
PROVIDERS: Physician Assistant Medical; Emergency Provider Emergency Medicine Emergency Medical Services; PCP Internal Medicine
DX: J02.0 Streptococcal pharyngitis (principal); Z20.2 Contact with and (suspected) exposure to infections with a predominantly sexual mode of transmission
CPT/HCPCS: 0353U; 36415; 80053; 85025; 86704; 86706; 86709; 86780; 86803; 87340; 87389; 87651; 96372; 99282; 99284; J0696

== ENCOUNTER 2024-07-12 06:29 | Day surgery (SDC) | payer OTHER, SELFPAY ==
[2024-07-10 09:21] VITALS: BMI 30.3
--- NOTE | 2024-07-11 09:24 | HO.ANESPROP2 ---
Documented by User: Kimmy Jordan NP 07/11/24 09:24 HPI - Anesthesia Eval Consult details Narrative: 34yo M for Upper Endoscopy [facility] Surgical History Surgical History Hx of colonoscopy Social History Social History Household Members: Family Alcohol intake: current Alcohol intake frequency: holidays/special occasions only Patient Tobacco Use Status: Never used Tobacco Use of substances other than those prescribed or required for medical reasons: Yes Substance Use Frequency: Occasionally Have you been hit, kicked, punched, or otherwise hurt by someone within the past year? If so, by whom?: No Are you DNR?: No Advance Directives: No Advance Directives Information Provided: Yes Recently lost weight without trying: No Nutrition Risks: No Nutritional Risk Meds Allergies Allergy/AdvReac Type Severity Reaction Status Date / Time copper Allergy Mild Unknown Verified 04/08/24 14:11 Home Medications ?Medication ?Instructions ?Recorded ?Confirmed ?Last Taken ?Type cariprazine 4.5 mg capsule 4.5 mg PO DAILY 01/18/24 Unknown History (Vraylar) doxycycline hyclate 100 mg tablet 100 mg PO BID 01/18/24 Unknown History lamotrigine 200 mg tablet 200 mg PO DAILY 01/18/24 Unknown History bupropion HCl 300 mg 24 hr tablet, 300 mg PO DAILY 02/28/24 Unknown History extended release escitalopram oxalate 20 mg tablet 20 mg PO DAILY 02/28/24 Unknown History Exam Height,Weight and Vital Signs: Height 5 ft 9 in Weight 92.986 kg Assessment and Plan Assessment Anesthesia Assessment: Chart Reviewed Documented by User: Cata Escalona MD 07/12/24 07:17 [facility] Family History Family history of problems with anesthesia: No Surgical History Surgical History Hx of colonoscopy History of Problems with Anesthesia: No Social History Social History Household Members: Family Alcohol intake: current Alcohol intake frequency: holidays/special occasions only Patient Tobacco Use Status: Never used Tobacco Use of substances other than those prescribed or required for medical reasons: Yes Substance Use Frequency: Occasionally Have you been hit, kicked, punched, or otherwise hurt by someone within the past year? If so, by whom?: No Are you DNR?: No Advance Directives: No Advance Directives Information Provided: Yes Recently lost weight without trying: No Nutrition Risks: No Nutritional Risk Meds Allergies Allergy/AdvReac Type Severity Reaction Status Date / Time copper Allergy Mild Unknown Verified 04/08/24 14:11 Home Medications ?Medication ?Instructions ?Recorded ?Confirmed ?Last Taken ?Type cariprazine 4.5 mg capsule 4.5 mg PO DAILY 01/18/24 Unknown History (Vraylar) doxycycline hyclate 100 mg tablet 100 mg PO BID 01/18/24 Unknown History lamotrigine 200 mg tablet 200 mg PO DAILY 01/18/24 Unknown History bupropion HCl 300 mg 24 hr tablet, 300 mg PO DAILY 02/28/24 Unknown History extended release escitalopram oxalate 20 mg tablet 20 mg PO DAILY 02/28/24 Unknown History Exam Airway Mallampati Class: II TM Dist: >3cm Neck ROM: Full Heart: rrr Lungs: cta Assessment and Plan Assessment Anesthesia Assessment: Anesthesia Plan Discussed Final Anesthetic Review Family History of Problems with Anesthesia: No History of Problems with Anesthesia: No NPO: Yes ASA Class: II Final Preanesthetic Review: No Changes in Pt Med Stat, Meds/Allgs Chart Reviewed and Consent Obtained/Reviewed Patient Risk: Low Procedure Risk: Low Anesthetic Plan Anesthetic Plan: MAC: Disposition: Standard PACU
[2024-07-12 06:50] VITALS: BMI 28.8
[2024-07-12 07:03] VITALS: BP 115/75; PULSE 64; RESP 16; TEMP 36.1; O2SAT 96
[2024-07-12] MEDS: Lactated Ringers 1,000 ML 100 ML IVCONT (07:16)
--- NOTE | 2024-07-12 07:49 | MHC.SHP ---
Pre-Procedural Eval Section A - 24 Hr Update-Section A only Date of Service: 07/12/24 Section B - Complete if H&P > 30 days Chief Complaint: gerd, abnormal UGIS Details of Present Illness: [facility] Surgical History (Updated 02/28/24 @ 12:36 by KIMO Shah) Hx of colonoscopy Present Medications: see Short Stay Collaborative assessment Allergies: Allergies Allergy/AdvReac Type Severity Reaction Status Date / Time copper Allergy Mild Unknown Verified 04/08/24 14:11 Review of Systems Review of Systems Comment: Ten point ROS negative Exam Exam Comment: Gen appear: No acute distress HEENT: no icterus Chest: No overt resp distress Abd: soft, nontender, nondistended Psych: Stable affect, answering questions appropriately Neuro: A/Ox3 noted to move all extremities spontaneously Ext: no peripheral edema Plan Diagnosis/Plan: Unchanged I have reviewed the history and physical and performed a pertinent physical examination on my patient. No changes have occurred unless specified. Time Spent With Patient Time: Total time managing care of this patient today ____ minutes.
--- NOTE | 2024-07-12 08:50 | P.OP_ITS ---
Operative Note Operative Note Date of Service: 07/12/24 Narrative: Procedure: Esophagogastroduodenoscopy Endoscopist: Deyanira Kat MD Indication: Abd pain, abnormal upper GI series Anesthesia Provider: Viktoria Stark CRNA Anesthesia Type: MAC ?? EGD Procedure:?? The procedure, indications, preparation and potential complications were reviewed with the patient, who indicated understanding and gave written informed consent to proceed. A physical exam was performed. The endoscope was introduced through the mouth, and advanced to the second part of duodenum. The mucosa was carefully examined on slow withdrawal of the endoscope. The patient tolerated the procedure well. There were no immediate complications.? ? EGD Findings:? * Esophagus:? Normal mucosa noted in the entire esophagus. The Z line was at 42 cm. Middle and lower esophagus forceps biopsies were obtained to rule out eosinophilic esophagitis. * Stomach:? Erythema and scant heme was noted in the body of the stomach. Retroflexion was performed in the cardia that showed Hill grade II hiatal hernia. Random cold forceps gastric biopsies were taken to rule out H Pylori infection. * Duodenum:? Normal mucosa was noted in the whole of the examined duodenum. Cold forceps biopsies were taken from duodenal bulb and second portion of the duodenum to rule out celiac sprue. ? EGD Impressions:? * Normal esophagus (biopsy) * Hiatal hernia * Gastritis (biopsy) * Normal duodenum (biopsy) ?? Recommendations:?? * Follow biopsy results. Our office will call or send a letter with results within 7-10 days. * Continue PPI therapy. * If H pylori +, patient will be prescribed eradication therapy followed by test of cure. * Avoid NSAIDs and smoking Above has been reviewed with the patient.
[2024-07-12 08:57] VITALS: BP 111/65; PULSE 57; RESP 16; TEMP 36.1; O2SAT 98
[2024-07-12 09:12] VITALS: BP 122/77; PULSE 63; RESP 16; TEMP 36.2; O2SAT 98
== END 2024-07-12 09:52 | disposition home or self-care (01) ==
PROVIDERS: PCP Internal Medicine; Visit Provider Internal Medicine
PROC: 0DJ08ZZ Inspection of Upper Intestinal Tract, Via Natural or Artificial Opening Endoscopic (ICD-10-PCS; CPT 43235; principal; 2024-07-12 08:20)
DX: K29.70 Gastritis, unspecified, without bleeding (principal); K20.80 Other esophagitis without bleeding; K29.80 Duodenitis without bleeding; K44.9 Diaphragmatic hernia without obstruction or gangrene; K21.9 Gastro-esophageal reflux disease without esophagitis; Z79.899 Other long term (current) drug therapy
CPT/HCPCS: 43239; 88305; 88313; 88342; J1596; J2704

== ENCOUNTER → 2024-07-12 06:29 | Outpatient (BNV) | payer OTHER, SELFPAY | PROVIDERS: PCP Internal Medicine; Visit Provider Internal Medicine | DX: R93.3 Abnormal findings on diagnostic imaging of other parts of digestive tract (principal); K29.70 Gastritis, unspecified, without bleeding; K20.90 Esophagitis, unspecified without bleeding; K29.80 Duodenitis without bleeding | CPT/HCPCS: 43239 ==

== ENCOUNTER 2024-08-03 08:04 | Outpatient (AMB) | payer OTHER, SELFPAY ==
[2024-08-03 08:05] VITALS: BP 116/70; PULSE 68; O2SAT 96; BMI 29.8
--- NOTE | 2024-08-03 08:05 | A.OFFVIS_ITS ---
Vital Signs 08/03/24 08:05 Height 5 ft 9 in Weight 201 lb 15.095 oz BMI 29.8 BP 116/70 Blood Pressure Location Rt brachial Position Sitting Pulse 68 Pulse Source Pulse Oximeter Pulse Oximetry (%) 96 Oxygen Delivery Method Room Air Intake Visit Reasons: S/P FUV and sx management. Intake Note: Constantine presents in office today for a scheduled 6 mos FUV + S/P. CC; Pt was rx'd omeprazole at his last visit, prior to his procedure. Pt reports that he has been stable since his last visit. Pt does report still having difficulties with diarrhea, denies any constipation. Pt reports that the omeprazole has not been controlling his reflux as well as he had hoped. Pt is still taking his medications as intended. However, he states he ran out of the famotidine a few months ago and has not been able to get it refilled since. [employer] Required: No Allergies copper Allergy (Mild, Verified 08/03/24 08:07) Unknown HPI HPI S/P FUV and sx management.: Details: LAST VISIT: Postprandial epigastric pain Postprandial abdominal bloating Postprandial diarrhea GERD (gastroesophageal reflux disease) Abdominal bloating Abdominal pain Plan Patient will continue omeprazole. Upper GI series showed mild contrast pooling in the phone this the stomach questioning superficial or SIRS versus inflammation. Patient will be sent for upper endoscopy to rule out gastritis, duodenitis, esophagitis, gastric or peptic ulcers. Patient was encouraged to avoid dietary triggers and late night snacking. Staying upright for minimum 3 hours after meals discussed with patient. Increase fluid intake and activity to promote better bowel motility. I will see patient after the procedure, sooner on as needed basis. Patient is agreeable to this plan and verbalizes understanding of instructions. He was given the opportunity to ask questions and all questions answered. ? Thank you for allowing me to participate in his care Medications Refilled omeprazole 20 mg PO DAILY 90 caps 3RF K21.9 EGD Findings:? * Esophagus:? Normal mucosa noted in the entire esophagus. The Z line was at 42 cm. Middle and lower esophagus forceps biopsies were obtained to rule out eosinophilic esophagitis. * Stomach:? Erythema and scant heme was noted in the body of the stomach. Retroflexion was performed in the cardia that showed Hill grade II hiatal hernia. Random cold forceps gastric biopsies were taken to rule out H Pylori infection. * Duodenum:? Normal mucosa was noted in the whole of the examined duodenum. Cold forceps biopsies were taken from duodenal bulb and second portion of the duodenum to rule out celiac sprue. ? EGD Impressions:? * Normal esophagus (biopsy) * Hiatal hernia * Gastritis (biopsy) * Normal duodenum (biopsy)?? Recommendations:?? * Follow biopsy results. Our office will call or send a letter with results within 7-10 days. * Continue PPI therapy. * If H pylori +, patient will be prescribed eradication therapy followed by test of cure. * Avoid NSAIDs and smoking PATHOLOGY RESULTS: Diagnosis A. Duodenum, biopsy: Chronic active duodenitis. B. Stomach, random, biopsy: Antral-type and oxyntic mucosa with mild chronic inactive inflammation; no Helicobacter organisms seen. C. Esophagus, lower, biopsy: Active esophagitis (maximum eosinophil count 23 per high powered field). D. Esophagus, middle, biopsy: Active esophagitis (maximum eosinophil count 12 per high powered field). Comment: The differential for the findings in the esophagus includes reflux and eosinophilic esophagitis; please correlate with clinical and endoscopic findings. TODAY'S VISIT Patient is here today for follow-up. Patient reports that he has been feeling little better since he was started on omeprazole and famotidine. His symptoms of acid reflux have suppressed. Occasional epigastric pain depending on what he eats. Abdominal bloating and diarrhea depending what he eats. Patient is trying to avoid dietary triggers. Has not follow the FODMAP diet, however she does try to avoid certain food. Patient denies melena, hematochezia. Upper endoscopy done and showed esophagitis. Patient denies dyspepsia, dysphagia or odynophagia. Although eosinophilic esophagitis found on biopsy esophagus looked normal when assessed by Dr. Kat [facility] Surgical History Hx of colonoscopy Social History Household Members: Family Alcohol intake: current Alcohol intake frequency: holidays/special occasions only Patient Tobacco Use Status: Never used Tobacco Review of Systems Const Denies weight gain and Denies weight loss ENT Reports no additional complaints, Denies dysphagia and Denies odynophagia Card Reports no additional complaints Resp Reports no additional complaints GI Denies abdominal pain, Denies belching, Denies melena, Reports bloating, Denies change in bowel habits, Denies dysphagia, Denies excessive flatus, Denies dyspepsia, Reports heartburn, Denies diarrhea, Reports loose stools, Denies nausea, Denies odynophagia and Denies vomiting Reports no additional complaints Musc Reports no additional complaints Neuro Reports no additional complaints Psych Reports no additional complaints Endo Reports no additional complaints Physical Exam Vital Signs: Last Vital Signs Pulse 68 08/03/24 08:05 BP 116/70 08/03/24 08:05 Pulse Ox 96 08/03/24 08:05 Oxygen Delivery Method Room Air 08/03/24 08:05 BMI result Body Mass Index 29.8 Const General: healthy appearing and no acute distress Nutritional Appearance: obese Orientation/consciousness: patient oriented x3 Resp Effort & Inspection: normal respiratory effort, able to speak in complete sentences, no tracheal deviation and symmetric chest movement Auscultation: clear to auscultation bilaterally Cardio Rate: regular rate GI Inspection: Yes normal to inspection, No distended and Yes obesity Palpation (GI): Soft to palpation, not firm, nontender and No hepatosplenomegaly present Auscultation: normal bowel sounds General: Yes no CVA tenderness Back/Spine/Pelvis Back: no CVA tenderness Skin General skin exam: elasticity normal, turgor normal and dry skin Neuro General: patient oriented x3 Psych Appearance: grossly normal Mental Status: mental status grossly normal Assessment & Plan Assessment & Plan (1) Postprandial epigastric pain: Code(s): R10.13 - Epigastric pain (2) Postprandial abdominal bloating: Code(s): R14.0 - Abdominal distension (gaseous) (3) Postprandial diarrhea: Code(s): K52.9 - Noninfective gastroenteritis and colitis, unspecified (4) GERD (gastroesophageal reflux disease): Code(s): K21.9 - Gastro-esophageal reflux disease without esophagitis Qualifiers: Esophagitis presence: with esophagitis Esophagitis bleeding: without hemorrhage Qualified Code(s): K21.00 - Gastro-esophageal reflux disease with esophagitis, without bleeding (5) Abdominal bloating: Code(s): R14.0 - Abdominal distension (gaseous) (6) Abdominal pain: Code(s): R10.9 - Unspecified abdominal pain Qualifiers: Abdominal location: generalized Qualified Code(s): R10.84 - Generalized abdominal pain (7) Eosinophilic esophagitis: Code(s): K20.0 - Eosinophilic esophagitis Plan Send patient for RAST allergen testing. Will change PPI to Nexium. Patient was encouraged to avoid dietary triggers. Avoid late night snacking. Staying upright for minimum 3 hours after meals discussed with patient. Continue low FODMAP diet. Patient does have a list at home of food that he should avoid and food that is recommended. Avoid NSAIDs. Follow-up in 3 months, sooner on as needed basis. Patient is agreeable to this plan and verbalizes understanding of instructions. He was given the opportunity to ask questions and all questions answered. Thank you for allowing me to participate in his care Orders: Orders Rast Allergen Today K21.9 - Gastro-esophageal reflux disease without esophagitis Medications: New esomeprazole magnesium (Nexium) 40 mg PO DAILY 30 caps 5RF K21.9 - Gastro- esophageal reflux disease without esophagitis methylcellulose (laxative) (Citrucel) take it with full glass of water 500 mg PO DAILY 30 tabs 2RF K59.00 - Constipation, unspecified Refilled famotidine (Pepcid) 20 mg PO BEDTIME 30 tabs 3RF K21.9 - Gastro-esophageal reflux disease without esophagitis Discontinued omeprazole Discontinued Reason: Doctor's Order 20 mg PO DAILY 90 caps 3RF K21.9 - Gastro-esophageal reflux disease without esophagitis Coding Level of Care Code Est Pt Level 4 (23289) Diagnoses Postprandial epigastric pain R10.13 Postprandial abdominal bloating R14.0 Postprandial diarrhea K52.9 Gastroesophageal reflux disease with esophagitis without hemorrhage K21.00 Esophagitis presence: with esophagitis Esophagitis bleeding: without hemorrhage Abdominal bloating R14.0 Generalized abdominal pain R10.84 Abdominal location: generalized Eosinophilic esophagitis K20.0 Time Spent (min) 35 Comment 15 minutes spent with patient and additional 10 minutes spent reviewing his records
== END 2024-08-03 08:59 | disposition home or self-care (01) ==
PROVIDERS: PCP Internal Medicine; Visit Provider Nurse Practitioner Family
DX: K52.9 Noninfective gastroenteritis and colitis, unspecified (principal); K21.00 Gastro-esophageal reflux disease with esophagitis, without bleeding
CPT/HCPCS: 99214

== ENCOUNTER 2024-08-03 08:04 | Outpatient (REF) | payer OTHER, SELFPAY ==
[2024-08-09 21:52] LABS: Calprotectin, Fecal 9 mcg/g
== END 2024-08-03 08:05 | disposition home or self-care (01) ==
LOC: HO.LAB 08:04
PROVIDERS: PCP Internal Medicine; Visit Provider Nurse Practitioner Family
DX: R10.13 Epigastric pain (principal); R14.0 Abdominal distension (gaseous); K52.9 Noninfective gastroenteritis and colitis, unspecified; K21.9 Gastro-esophageal reflux disease without esophagitis; R10.84 Generalized abdominal pain; K20.0 Eosinophilic esophagitis
CPT/HCPCS: 36415; 83993; 86003; 99212

== ENCOUNTER 2024-11-14 09:58 | Outpatient (AMB) | payer OTHER, SELFPAY ==
[2024-11-14 10:00] VITALS: BP 114/62; PULSE 68; O2SAT 96; BMI 29.9
--- NOTE | 2024-11-14 10:00 | MHC.OFFVIS ---
Vital Signs 11/14/24 10:00 Height 5 ft 9 in Weight 202 lb 13.204 oz BMI 29.9 BP 114/62 Blood Pressure Location Rt brachial Position Sitting Pulse 68 Pulse Source Pulse Oximeter Pulse Oximetry (%) 96 Oxygen Delivery Method Room Air Intake Visit Reasons: 3 mos FUV. Review RAST Intake Note: ESTABLISHED PATIENT Reason; 3 mo FU. Review RAST (Activity Tab) Changes/concerns? Pt has concerns regarding medications and possible conflicts with his other Rxs. Pt does not recall which medication was going to cause potential conflict. Pt was advised by pharmacist to stop stomach medications until able to speak to GI provider. Allergies copper Allergy (Mild, Verified 11/14/24 10:04) Unknown HPI HPI 3 mos FUV. Review RAST: Details: LAST VISIT Postprandial epigastric pain Postprandial abdominal bloating Postprandial diarrhea GERD (gastroesophageal reflux disease) Abdominal bloating Abdominal pain Eosinophilic esophagitis Plan Send patient for RAST allergen testing. Will change PPI to Nexium. Patient was encouraged to avoid dietary triggers. Avoid late night snacking. Staying upright for minimum 3 hours after meals discussed with patient. Continue low FODMAP diet. Patient does have a list at home of food that he should avoid and food that is recommended. Avoid NSAIDs. Follow-up in 3 months, sooner on as needed basis. Patient is agreeable to this plan and verbalizes understanding of instructions. He was given the opportunity to ask questions and all questions answered. ? Thank you for allowing me to participate in his care Orders Orders Rast Allergen Today K21.9 Medications New esomeprazole magnesium (Nexium) 40 mg PO DAILY 30 caps 5RF K21.9 methylcellulose (laxative) (Citrucel) take it with full glass of water 500 mg PO DAILY 30 tabs 2RF K59.00 Refilled famotidine (Pepcid) 20 mg PO BEDTIME 30 tabs 3RF K21.9 Discontinued omeprazole Discontinued Reason: Doctor's Order 20 mg PO DAILY 90 caps 3RF K21.9 TODAY'S VISIT: Patient is here today for follow-up and to discuss RAST allergen results. No allergy found except to cow's milk. Patient does not drink milk. 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 Patient does not remember of which medication they were referring to and currently is not taking any prescribed by this office. Patient reports occasional acid reflux and dyspepsia depending on what he eats. Denies any dysphagia or odynophagia. Occasional abdominal bloating depending on what he eats. Moving his bowels well. Denies constipation, diarrhea or mucus in his stools. Denies melena, hematochezia PFSH Surgical History Hx of colonoscopy Social History Household Members: Family Alcohol intake: current Alcohol intake frequency: holidays/special occasions only Patient Tobacco Use Status: Never used Tobacco Review of Systems Const Denies weight gain and Denies weight loss ENT Reports no additional complaints, Denies dysphagia and Denies odynophagia Card Reports no additional complaints Resp Reports no additional complaints GI Denies abdominal pain, Denies belching, Denies melena, Denies bloating, Denies change in bowel habits, Denies dysphagia, Denies excessive flatus, Denies dyspepsia, Denies heartburn, Denies diarrhea, Denies loose stools, Denies nausea, Denies odynophagia and Denies vomiting Reports no additional complaints Musc Reports no additional complaints Neuro Reports no additional complaints Psych Reports no additional complaints Endo Reports no additional complaints Physical Exam Vital Signs: Last Vital Signs Pulse 68 11/14/24 10:00 BP 114/62 11/14/24 10:00 Pulse Ox 96 11/14/24 10:00 Oxygen Delivery Method Room Air 11/14/24 10:00 BMI result Body Mass Index 29.9 Const General: healthy appearing and no acute distress Nutritional Appearance: obese Orientation/consciousness: patient oriented x3 Resp Effort & Inspection: normal respiratory effort, able to speak in complete sentences, no tracheal deviation and symmetric chest movement Auscultation: clear to auscultation bilaterally Cardio Rate: regular rate GI Inspection: Yes normal to inspection, No distended and Yes obesity Palpation (GI): Soft to palpation, not firm, nontender and No hepatosplenomegaly present Auscultation: normal bowel sounds General: Yes no CVA tenderness Back/Spine/Pelvis Back: no CVA tenderness Skin General skin exam: elasticity normal, turgor normal and dry skin Neuro General: patient oriented x3 Psych Appearance: grossly normal Mental Status: mental status grossly normal Assessment & Plan Assessment & Plan (1) Postprandial epigastric pain: Code(s): R10.13 - Epigastric pain (2) Postprandial abdominal bloating: Code(s): R14.0 - Abdominal distension (gaseous) (3) Postprandial diarrhea: Code(s): K52.9 - Noninfective gastroenteritis and colitis, unspecified (4) GERD (gastroesophageal reflux disease): Code(s): K21.9 - Gastro-esophageal reflux disease without esophagitis Qualifiers: Esophagitis bleeding: without hemorrhage Esophagitis presence: with esophagitis Qualified Code(s): K21.00 - Gastro-esophageal reflux disease with esophagitis, without bleeding (5) Abdominal bloating: Code(s): R14.0 - Abdominal distension (gaseous) (6) Abdominal pain: Code(s): R10.9 - Unspecified abdominal pain Qualifiers: Abdominal location: generalized Qualified Code(s): R10.84 - Generalized abdominal pain (7) Eosinophilic esophagitis: Code(s): K20.0 - Eosinophilic esophagitis Plan Patient will continue taking Nexium daily. May take fiber to regulate his bowels. Does admit to occasional softer stools postprandially. Patient was encouraged to avoid dietary triggers and late night snacking. Staying upright for minimum 3 hours after meals discussed with patient. Patient will be referred to allergy/immunology as eosinophilic esophagitis found on biopsy. Referral sent. Patient will follow-up in 6 months. He will call our office if he will have any GI concerning symptoms. He is agreeable to this plan and verbalizes understanding of instructions. He was given the opportunity to ask questions and all questions answered. Thank you for allowing me to participate in his care Orders: Referrals Allergy & Immunology Referral K20.0 - Eosinophilic esophagitis Medications: Discontinued famotidine Discontinued Reason: Doctor's Order 20 mg PO BEDTIME 90 tabs 1RF K21.9 - Gastro-esophageal reflux disease without esophagitis Coding Level of Care Code Est Pt Level 3 (34104) Diagnoses Postprandial epigastric pain R10.13 Postprandial abdominal bloating R14.0 Postprandial diarrhea K52.9 Gastroesophageal reflux disease with esophagitis without hemorrhage K21.00 Esophagitis bleeding: without hemorrhage Esophagitis presence: with esophagitis Abdominal bloating R14.0 Generalized abdominal pain R10.84 Abdominal location: generalized Eosinophilic esophagitis K20.0 Time Spent (min) 30 Comment 20 minutes spent with patient and additional 10 minutes spent reviewing his records
--- OUTSIDE RECORDS SUMMARY | 2024-11-14 10:52 | XMS_ITS | Clinical Summary ---
Author Organization [facility] Address [address] [place] [address] Care Team Providers Care Baby Stroller Rental Clerk Name Role Phone Angel Ann MD Primary Care Provider [phone] Allergies No known active allergies Medications Medication Sig Dispensed Refills Start Date End Date Status buPROPion (WELLBUTRIN) 100 MG tablet Take 100 mg by mouth daily. 0 Active Escitalopram Oxalate (LEXAPRO PO) Take by mouth daily. 0 Active LITHIUM PO Take 500 mg by mouth 3 (three) times a day. 0 Active ARIPiprazole (ABILIFY DISCMELT PO) Take 100 mg by mouth daily. 0 Active methocarbamol (ROBAXIN) 750 MG tablet Take 1 tablet (750 mg total) by mouth 4 (four) times a day. 20 tablet 0 04/23/2021 Active bacitracin 500 UNIT/GM ointment Apply topically 2 (two) times a day. 15 g 0 09/23/2022 Active ibuprofen 600 MG tablet Take 1 tablet (600 mg total) by mouth every 6 (six) hours as needed. 20 tablet 0 09/23/2022 Active lidocaine (XYLOCAINE) 2 % SOLN solution Please gargle and then spit out 5 mL. Please do this every 3-4 hours as needed for pain. 60 mL 0 09/23/2022 Active Immunizations Name Administration Dates Next Due Covid-19 (Pfizer) Dilution Required 04/13/2021,0 02/23/2021 Social History Tobacco Use Types Packs/Day Years Used Date Smoking Tobacco: Never Smokeless Tobacco: Never Alcohol Use Standard Drinks/Week Comments Never 0 (1 standard drink = 0.6 oz pur e alcohol) Sex and Gender Information Value Date Recorded Sex Assigned at Male 02/23/2021 4:27 PM EDT Gender Identity Male 04/23/2021 10:54 AM EDT Sexual Orientation Not on file Job Start Date Occupation Industry Not on file Not on file Not on file Last Filed Vital Signs Vital Sign Reading Time Taken Comments Blood Pressure 129/77 09/23/2022 11:51 AM EST Pulse 99 09/23/2022 11:51 AM EST Temperature 37.3 ??C (99.2 ??F) 09/23/2022 11:[address] Respiratory Rate 17 09/23/2022 11:51 AM EST Oxygen Saturation 96% 09/23/2022 11:51 AM EST Inhaled Oxygen Concentration - - Weight 81.6 kg (180 lb) 04/23/2021 10:41 AM EDT Height 175.3 cm (5' 9 ) 04/23/2021 10:41 AM EDT Body Mass Index 26.58 04/23/2021 10:41 AM EDT Plan of Treatment Health Maintenance Due Date Last Done Comments Hepatitis B Vaccines (1 of 3 - 3-dose series) 1990 Hepatitis C Screening 1990 Depression Screening 2002 Preventative Health Evaluation 2008 DTap / Tdap / Td (2 - Td or Tdap) 03/03/2021 03/03/2011 COVID-19 Vaccine (3 - 2023-2 5 season) 2024 04/13/2021, 02/23/2021 Influenza Vaccine (#1) 2024 7, 09/01/2016, 08/24/2010 Pneumococcal Vaccine Aged Out No long er eligible based on patient's age to complete this topic RSV Ped < 20 months Aged Out No longe r eligible based on patient's age to complete this topic Care Teams Baby Stroller Rental Clerk Relationship Specialty Start Date End Date Angel Ann MD [address] [place] [address] [address] [place] [address] PCP - General Marketing Executive 09/23/22
--- OUTSIDE RECORDS SUMMARY | 2024-11-14 10:53 | XMS_ITS | Clinical Summary ---
Author Organization [facility] Address [address] [place] [address] Care Team Providers Care Press Set Up Name Role Phone Angel Ann MD Primary Care Provider [phone] Medical History Medical History Date Comments PTSD (post-traumatic stress disorder) DX:PTSD (post-traumatic stress disorder) Bipolar 1 disorder (CMS/HCC) DX: Bipolar 1 disorder (HCC) Anxiety DX:Anxiety Adhd DX:ADHD Social History Tobacco Use Types Packs/Day Years Used Date Smoking Tobacco: Never Smokeless Tobacco: Never Alcohol Use Standard Drinks/Week Comments Never 0 (1 standard drink = 0.6 oz pur e alcohol) Sex and Gender Information Value Date Recorded Sex Assigned at Not on file Gender Identity Not on file Sexual Orientation Not on file Obstetrics History Plan of Treatment Health Maintenance Due Date Last Done Comments Hepatitis B Vaccines (3 of 3 - 3-dose series) 09/04/2002 07/10/2002, 11/14/2000 DTaP,Tdap,and Td Vaccines (2 - Td or Tdap) 03/03/2021 03/03/2011 Depression Screening 09/26/2022 HIV Screening 09/26/2022 Hepatitis C Screening 09/26/2022 Social Influencers of Health Screening 09/26/2022 COVID-19 Vaccine (3 - 2023-2 5 season) 2024 04/13/2021, 02/23/2021 Influenza Vaccine (#1) 2024 7, 09/01/2016, 08/24/2010 HIB Vaccines Aged Out No longer eligi ble based on patient's age to complete this topic HPV Vaccines Aged Out No longer eligi ble based on patient's age to complete this topic Hepatitis A Vaccines Aged Out No long er eligible based on patient's age to complete this topic IPV Vaccines Aged Out No longer eligi ble based on patient's age to complete this topic MMR Vaccines Aged Out No longer eligi ble based on patient's age to complete this topic Meningococcal ACWY Vaccine Aged Out N o longer eligible based on patient's age to complete this topic Pneumococcal Vaccine: Pediatrics (0 to 5 Years) and At-Risk Patients (6 to 64 Years) Aged Out No longer eligible b ased on patient's age to complete this topic RSV Immunization Patients Under 20 months Aged Out No longer eligible b ased on patient's age to complete this topic Varicella Vaccines Aged Out No longer eligible based on patient's age to complete this topic Care Teams Press Set Up Relationship Specialty Start Date End Date Angel Ann MD [address] [place] [address] Dr Good MA PCP - General 09/23/22
--- OUTSIDE RECORDS SUMMARY | 2024-11-14 10:53 | XMS_ITS | Continuity of Care Document ---
Author Organization [facility] Address [address] [place] [address] Phone Care Team Providers Care Inspector Missile Name Role Phone Stevan Default, Eric Unavailable Unavailable Allergies, Adverse Reactions, Alerts Substance Reaction Status Criticality No Known Allergies Active No Inform ation Advance Directives Directive Yes / No Effective Date File Name No Information Encounters Encounter Description Practice Location Reason(s) For Visit Diagnoses Date Provider [employer] [facility], [address] [place] [address], [facility] [place], tel:[phone] [address] No Information 2021 Stevan Reyes. [address] [place] [address], [address] [place] [address], . tel:[phone] [employer] [facility], [address] [place] [address], [facility] [place], tel:[phone] OP [address] 2021 Nancy Serrano. [address] [place] [address], [id number], . tel:[phone] As per patient privacy policy some of the clinical information may not be visible. Family History Family Member Type Diagnosis Age At Onset No Information Payers Payer name Insurance type Covered democrat ID Authoriza tion(s) No Information Social History Type Description Quantity Date Captured Comments Sex Male Smoking Status No Information Sexual Orientation Don't Know Gender Identity Male Chief Complaint And Reason For Visit No Information Plan Of Treatment Date Type Action Status Goal Tdap. Due on due Goal Health Literacy Assessment. Due on due Goal HIV 1/0/2 Ag/Ab w/Rflx. Due on due Goal Depression screening. Due on due Goal Td vaccine. Due on due Goal Influenza vaccine. Due on due History Of Present Illness Encounter Date Complaint History Of Prese nt Illness No Information Instructions Date Instruction Additional Infor mation No Information Assessments Type Assessment Date No Information
== END 2024-11-14 10:32 | disposition home or self-care (01) ==
PROVIDERS: PCP Internal Medicine; Visit Provider Nurse Practitioner Family
DX: R10.13 Epigastric pain (principal); R14.0 Abdominal distension (gaseous); K52.9 Noninfective gastroenteritis and colitis, unspecified; K21.00 Gastro-esophageal reflux disease with esophagitis, without bleeding; R10.84 Generalized abdominal pain; K20.0 Eosinophilic esophagitis
CPT/HCPCS: 99213

== ENCOUNTER → 2024-11-14 09:58 | Outpatient (BNVA) | payer OTHER, SELFPAY | PROVIDERS: PCP Internal Medicine; Visit Provider Nurse Practitioner Family | DX: K21.9 Gastro-esophageal reflux disease without esophagitis (principal); R10.13 Epigastric pain; R14.0 Abdominal distension (gaseous); K52.9 Noninfective gastroenteritis and colitis, unspecified; K21.00 Gastro-esophageal reflux disease with esophagitis, without bleeding; R10.84 Generalized abdominal pain | CPT/HCPCS: 99212 ==

== ENCOUNTER 2025-05-06 21:01 | Emergency (ER) | payer MEDICARE, MEDICAID, SELFPAY ==
[2025-05-06 21:05] VITALS: BP 115/63; PULSE 75; RESP 18; TEMP 36.3; O2SAT 96; BMI 25.7
[2025-05-06 21:45] LABS: MANUAL DIFF FLAG NO
[2025-05-06 21:46] LABS: Hematocrit 42.9 % (42.0-52.0); Hemoglobin 15.2 g/dl (14.0-18.0); Imm Gran Abs Auto 0.04 X10*3/uL (0.00-0.03); Imm Gran Pct Auto 0.3 % (0.0-0.4); Lymphocytes Absolute Auto 1.1 X10*3/uL (1.2-4.9); Mean Corpuscular HGB Conc 35.4 g/dl (31.0-36.0); Mean Corpuscular Hemoglobin 29.4 pg (27.0-33.0); Mean Corpuscular Volume 83.0 fL (80.0-98.0); NRBC Abs Auto 0.000 X10*3/uL (0.0-0.012); NRBC Pct Auto 0.0 /100WBC (0.0-0.2); Platelet Count 184 X10*3/uL (160-400); Red Blood Count 5.17 X10*6/uL (4.60-5.80); White Blood Count 12.1 X10*3/uL (4.8-10.8)
[2025-05-06 22:01] LABS: Alanine Aminotransferase 21 U/L (0-40); Albumin Level 4.4 g/dL (3.5-5.0); Alkaline Phosphatase 65 U/L (39-117); Anion Gap 11 (12-20); Aspartate Amino Transferase 19 U/L (5-37); Blood Urea Nitrogen 15 mg/dL (9-16); Calcium 9.0 mg/dL (8.4-10.2); Carbon Dioxide 27 mmol/L (22-29); Chloride 108 mmol/L (96-108); Creatinine Clr Calc Pharmacy 106.2; Estimated Glomerular Filt Rate > 60; Potassium 4.5 mmol/L (3.3-5.1); Sodium 141 mmol/L (135-145); Total Protein 7.1 g/dL (6.5-8.0)
[2025-05-06 22:24] LABS: Resp Syncy Virus RNA Qual PCR NEGATIVE (Negative); SARS COV2 PCR INHOUSE NEGATIVE (Negative)
--- NOTE | 2025-05-06 22:47 | ED.GENADULT ---
HPI - General Adult General Chief complaint: Nausea/Vomiting/Diarrhea Stated complaint: Fatigue, vomitting, dizziness Time Seen by Provider: 05/06/25 22:47 Source: patient and RN notes reviewed History of Present Illness HPI narrative: 35-year-old male presents for evaluation of nausea vomiting and diarrhea as well as generalized weakness. Patient states symptoms began yesterday and have essentially resolved. He continues to have mild nausea but no vomiting. He was able to tolerate food earlier today. Denies any fevers or chills. No sick contacts. Patient requesting note for work. Related Data Home Medications ?Medication ?Instructions ?Recorded ?Confirmed lamotrigine 200 mg tablet 200 mg PO DAILY 01/18/24 07/12/24 bupropion HCl 300 mg 24 hr tablet, 300 mg PO DAILY 02/28/24 07/12/24 extended release escitalopram oxalate 20 mg tablet 20 mg PO DAILY 02/28/24 07/12/24 cariprazine 3 mg capsule (Vraylar) 3 mg PO DAILY 08/03/24 Previous Rx's ?Medication ?Instructions ?Recorded esomeprazole magnesium 40 mg 40 mg PO DAILY #30 caps 08/03/24 capsule,delayed release (Nexium) methylcellulose (laxative) 500 mg 500 mg PO DAILY #30 tabs 08/03/24 tablet (Citrucel) Allergies Allergy/AdvReac Type Severity Reaction Status Date / Time copper Allergy Mild Unknown Verified 05/06/25 21:08 Review of Systems Review of Systems: Yes all other systems are reviewed and are negative Constitutional: Constitutional: Denies chills, Denies fever(s) and Denies headache(s) Eyes: Eyes: Denies change in vision and Denies other (No redness.) ENT: Denies headache(s), Denies nasal congestion, Denies nasal discharge, Denies neck pain and Denies sore throat Cardiovascular: Cardiovascular: Denies chest pain, Denies dyspnea, Denies dyspnea on exertion and Denies orthopnea Respiratory: Respiratory: Denies cough, Denies dyspnea and Denies dyspnea on exertion Gastrointestinal: Gastrointestinal: Denies abdominal pain, Denies melena, Denies hematochezia, Reports diarrhea, Reports nausea and Reports vomiting Genitourinary: Genitourinary: Denies difficulty urinating, Denies dysuria and Denies urinary urgency Musculoskeletal: Musculoskeletal: Denies back pain, Denies muscle weakness, Denies neck pain and Denies numbness Integumentary/Breasts: Skin/Breast: Denies rash Neurologic: Denies headache(s), Denies focal weakness and Denies numbness PMFSH Past Medical History Surgical History Hx of colonoscopy Social History Social History Household Members: Family Alcohol intake: current Alcohol intake frequency: holidays/special occasions only Patient Tobacco Use Status: Never used Tobacco Advance Directives: No Advance Directives Information Provided: No Do you have a plan to hurt others: No Plan Physical Exam ED Vital Signs: Vital Signs - 24 hr 05/06/25 21:05 Temperature 97.4 F Pulse Rate 75 Respiratory Rate 18 Blood Pressure 115/63 Pulse Oximetry 96 Oxygen Delivery Method Room Air BMI result Body Mass Index 25.7 Const General: cooperative, alert and awake Resp Other: Lung sounds clear throughout Cardio Rate: regular rate Rhythm: regular rhythm GI Other: Abdomen is soft and nontender, no peritoneal signs Medical Decision Making Medical Decision Making MDM Narrative: 35-year-old male with 24 hours of generalized weakness, nausea vomiting diarrhea, symptoms improving. Continues to have nausea. He is hemodynamically stable and afebrile. Labs essentially within normal ranges except for slight leukocytosis. Patient feels comfortable with discharge plan home. He would like antiemetics apart discharge despite being able to tolerate p.o. at home. He expresses understanding of all discharge instructions and has no further questions at this time. Differential Diagnosis Differential Diagnoses: The differential diagnosis associated with the presentation includes Dehydration Viral syndrome Dyspepsia Electrolyte imbalance Lab Data [facility] Lab Attestation statement: I reviewed the patient's lab results. 05/06/25 21:40 05/06/25 21:40 Labs: Lab Results 05/06/25 Range/Units 21:40 WBC 12.1 H (4.8-10.8) X10*3/uL RBC 5.17 (4.60-5.80) X10*6/uL Hgb 15.2 (14.0-18.0) g/dl Hct 42.9 (42.0-52.0) % MCV 83.0 (80.0-98.0) fL MCH 29.4 (27.0-33.0) pg MCHC 35.4 (31.0-36.0) g/dl RDW 12.5 (11.0-16.0) % Plt Count 184 (160-400) X10*3/uL MPV 9.5 (9.4-12.4) fL Immature Gran % (Auto) 0.3 (0.0-0.4) % Neut % (Auto) 87.0 H (45-73) % Lymph % (Auto) 8.8 L (20-40) % Gage % (Auto) 3.5 (2-11) % Eos % (Auto) 0.1 (0-4) % Baso % (Auto) 0.3 (0-2) % Lymph # (Auto) 1.1 L (1.2-4.9) X10*3/uL Gage # (Auto) 0.4 (0.1-1.2) X10*3/uL Eos # (Auto) 0.0 (0.0-0.4) X10*3/uL Baso # (Auto) 0.0 (0.0-0.2) X10*3/uL Abs Immat Gran (auto) 0.04 H (0.00-0.03) X10*3/uL Absolute Neuts (auto) 10.5 H (2.0-8.3) x10*3/uL Absolute Nucleated RBC 0.000 (0.0-0.012) X10*3/uL Nucleated RBC % (auto) 0.0 (0.0-0.2) /100WBC Sodium 141 (135-145) mmol/L Potassium 4.5 (3.3-5.1) mmol/L Chloride 108 (96-108) mmol/L Carbon Dioxide 27 (22-29) mmol/L Anion Gap 11 L (12-20) BUN 15 (9-16) mg/dL Creatinine 0.97 (0.5-1.4) mg/dL Estim Creat Clear Calc 106.2 Estimated GFR > 60 Random Glucose 124 H (60-115) mg/dL Calcium 9.0 D (8.4-10.2) mg/dL Total Bilirubin 0.3 (0.0-1.0) mg/dL AST 19 (5-37) U/L ALT 21 (0-40) U/L Alkaline Phosphatase 65 (39-117) U/L Total Protein 7.1 (6.5-8.0) g/dL Albumin 4.4 (3.5-5.0) g/dL Influenza Type A (PCR) NEGATIVE (Negative) Influenza Type B (PCR) NEGATIVE (Negative) RSV RNA Qual (PCR) NEGATIVE (Negative) SARS-CoV-2 RNA (RT-PCR) NEGATIVE (Negative) Prescription Management I considered prescription management with: Other Discharge Plan Discharge Clinical Impression: Nausea and vomiting Qualifiers: Vomiting type: unspecified Qualified Code(s): R11.2 - Nausea with vomiting, unspecified Patient Disposition: Home, Self-Care Instructions: Acute Nausea and Vomiting (ED) Additional Instructions: Clear liquids. [place] diet. Gradually advanced. Zofran as directed for nausea. Follow-up with your primary care provider. Call this week to schedule a follow-up appointment. Return to the emergency department if you have any worsening of symptoms, or any concerns. Get well soon! Prescriptions: No Action lamotrigine 200 mg tablet 200 mg PO DAILY bupropion HCl 300 mg tablet extended release 24 hr 300 mg PO DAILY escitalopram oxalate 20 mg tablet 20 mg PO DAILY Vraylar 3 mg capsule 3 mg PO DAILY esomeprazole magnesium [Nexium] 40 mg capsule,delayed release(DR/EC) 40 mg PO DAILY Qty: 30 5RF Citrucel 500 mg tablet 500 mg PO DAILY Qty: 30 2RF Rx Instructions: take it with full glass of water Stand Alone Forms: Work/School Release Print Language: Malay
[2025-05-06 23:11] VITALS: BP 115/63; PULSE 75; RESP 18; TEMP 36.3; O2SAT 96
== END 2025-05-06 23:11 | disposition home or self-care (01) ==
PROVIDERS: Emergency Provider Emergency Medicine
DX: R11.2 Nausea with vomiting, unspecified (principal); R19.7 Diarrhea, unspecified; Z03.818 Encounter for observation for suspected exposure to other biological agents ruled out
CPT/HCPCS: 80053; 85025; 87637; 99282; 99283

== ENCOUNTER 2025-05-18 23:06 | Emergency (ER) | payer MEDICARE, MEDICAID, SELFPAY ==
[2025-05-18 23:16] VITALS: BP 114/57; PULSE 77; RESP 16; TEMP 36.9; O2SAT 96; BMI 28.4
--- NOTE | 2025-05-18 23:32 | ED.ABDPAIN ---
HPI - Abdominal Pain General Chief Complaint: Abdominal Pain Stated Complaint: stomach pain Time Seen by Provider: 05/18/25 23:31 Source: patient Mode of arrival: ambulatory Limitations: no limitations History of Present Illness ED Provider: Bartolome MATA HPI narrative: The patient is a 35-year-old male presenting to the ED for evaluation of epigastric abdominal pain which occurred yesterday with some mild nausea however resolved spontaneously, patient reports pain recurred this evening without associated vomiting, diarrhea, chest pain, shortness of breath, pleurisy, fever/chills, hematochezia, melena, constipation, dysuria, hematuria, back pain, recent sick contacts, or recent trauma. The patient reports he is eating and moving his bowels without change in the pain. The patient denies surgical abdominal history. Related Data Home Medications ?Medication ?Instructions ?Recorded ?Confirmed lamotrigine 200 mg tablet 200 mg PO DAILY 01/18/24 07/12/24 bupropion HCl 300 mg 24 hr tablet, 300 mg PO DAILY 02/28/24 07/12/24 extended release escitalopram oxalate 20 mg tablet 20 mg PO DAILY 02/28/24 07/12/24 cariprazine 3 mg capsule (Vraylar) 3 mg PO DAILY 08/03/24 Previous Rx's ?Medication ?Instructions ?Recorded esomeprazole magnesium 40 mg 40 mg PO DAILY #30 caps 08/03/24 capsule,delayed release (Nexium) methylcellulose (laxative) 500 mg 500 mg PO DAILY #30 tabs 08/03/24 tablet (Citrucel) Allergies Allergy/AdvReac Type Severity Reaction Status Date / Time copper Allergy Mild Unknown Verified 05/18/25 23:17 Review of Systems Review of Systems Yes all other systems are reviewed and are negative [facility] Past Medical History Surgical History Hx of colonoscopy Social History Social History Household Members: Family Alcohol intake: current Alcohol intake frequency: holidays/special occasions only Patient Tobacco Use Status: Never used Tobacco Physical Exam ED Vital Signs: Vital Signs - 24 hr 05/18/25 23:16 Temperature 98.4 F Pulse Rate 77 Respiratory Rate 16 Blood Pressure 114/57 L Pulse Oximetry 96 Oxygen Delivery Method Room Air BMI result Body Mass Index 28.4 CONSTITUTIONAL: The patient appears non-toxic, well nourished and in no acute distress. Vital signs as documented. HEAD: Atraumatic, normocephalic. EYES: EOMs grossly intact, pupils equal, conjunctiva clear, no exudate. ENT: Nares patent, no discharge. Airway patent, no audible stridor, visible mucosa is pink and moist without noted lesions. NECK: Trachea is midline, no obvious masses or gross abnormalities. CHEST: Symmetric movement, normal appearance. LUNGS: LS present and CTAB, no w/r/r. Non-labored work of breathing. CARDIAC: Regular Rhythm, S1/S2 appreciated, no murmurs, rubs or gallops. ABDOMEN: Abdomen soft and non-tender x4 quadrants, no palpable masses or organomegaly. : Deferred. EXTREMITIES: Normal tone, moves all extremities spontaneously without reported pain. No obvious acute injury or deformity noted. NEURO: Alert and oriented x3, CN II-XII appear grossly intact. Cerebellar Functioning grossly intact. No obvious sensory or motor deficits. Speech clear and appropriate. PSYCH: normal affect, appropriate eye contact, fluid speech, with appropriate response to questioning. No reported suicidality or homicidality. SKIN: Warm, dry, color appropriate, normal turgor. No rashes noted. Medical Decision Making Medical Decision Making [facility] Narrative: 12:09 AM 05/19/2025 (Gracia MATA): The patient is a 35-year-old male presenting to the ED for evaluation of abdominal pain in the epigastrium without other associated symptoms. The patient's abdominal exam is benign, nontender, laboratory evaluation is markedly reassuring, no acute abnormalities. No indication for CT imaging. The patient is markedly well-appearing, no evidence of discomfort or distress. Patient will be treated with a GI cocktail and reassess. Of note patient is asking for a work note identifying that he was seen here this evening, which we will provide. Admission/Observation Consideration of admission/observation: Escalation of care including admission/observation considered Lab Data [facility] Lab Attestation statement: I reviewed the patient's lab results. 05/18/25 23:32 05/18/25 23:32 Labs: Lab Results 05/18/25 Range/Units 23:32 WBC 8.4 (4.8-10.8) X10*3/uL RBC 5.11 (4.60-5.80) X10*6/uL Hgb 14.9 (14.0-18.0) g/dl Hct 43.2 (42.0-52.0) % MCV 84.5 (80.0-98.0) fL MCH 29.2 (27.0-33.0) pg MCHC 34.5 (31.0-36.0) g/dl RDW 13.0 (11.0-16.0) % Plt Count 219 (160-400) X10*3/uL MPV 9.8 (9.4-12.4) fL Immature Gran % (Auto) 0.4 (0.0-0.4) % Neut % (Auto) 70.8 (45-73) % Lymph % (Auto) 21.0 (20-40) % Nobles % (Auto) 6.1 (2-11) % Eos % (Auto) 1.2 (0-4) % Baso % (Auto) 0.5 (0-2) % Lymph # (Auto) 1.8 (1.2-4.9) X10*3/uL [place]les # (Auto) 0.5 (0.1-1.2) X10*3/uL Eos # (Auto) 0.1 (0.0-0.4) X10*3/uL Baso # (Auto) 0.0 (0.0-0.2) X10*3/uL Abs Immat Gran (auto) 0.03 (0.00-0.03) X10*3/uL Absolute Neuts (auto) 6.0 (2.0-8.3) x10*3/uL Absolute Nucleated RBC 0.000 (0.0-0.012) X10*3/uL Nucleated RBC % (auto) 0.0 (0.0-0.2) /100WBC Sodium 142 (135-145) mmol/L Potassium 4.1 (3.3-5.1) mmol/L Chloride 108 (96-108) mmol/L Carbon Dioxide 25 (22-29) mmol/L Anion Gap 13 (12-20) BUN 15 (9-16) mg/dL Creatinine 1.02 (0.5-1.4) mg/dL Estim Creat Clear Calc 110.4 Estimated GFR > 60 Random Glucose 96 (60-115) mg/dL Calcium 9.2 (8.4-10.2) mg/dL Total Bilirubin 0.3 (0.0-1.0) mg/dL Direct Bilirubin 0.1 (0.0-0.5) mg/dL AST 18 (5-37) U/L ALT 21 (0-40) U/L Alkaline Phosphatase 65 (39-117) U/L Total Protein 7.1 (6.5-8.0) g/dL Albumin 4.7 (3.5-5.0) g/dL Lipase 77 (8-78) U/L Tests considered The following testing was considered but not selected: CT Abd Pelvis Discharge Plan Discharge Clinical Impression: Abdominal pain Patient Disposition: Home, Self-Care Instructions: Abdominal Pain (ED), Indigestion (ED) Additional Instructions: Thank you for choosing [facility]'s Emergency Department for your care today. At this time there is no indication for admission to the hospital or continued ED observation, and it is safe to discharge you home. Your laboratory evaluation and exam today are reassuring, there are no acute abnormalities and your abdomen is nontender on exam. Please stay well hydrated and get plenty of rest. Please follow up with your primary care physician for re-evaluation, additional management of your symptoms, and continued preventative care. If you do not have a primary care physician, please call the [facility] at [phone] to establish a new primary care physician. While waiting to establish your new primary care physician, you can call our [facility] at [phone] for non-emergency needs. Please return to the emergency department if you develop a severe or sudden change in your symptoms, a fever over 100.4 that does not improve with Tylenol or Ibuprofen, recurrent vomiting, or any other new or worsening symptoms or concerns. Prescriptions: No Action lamotrigine 200 mg tablet 200 mg PO DAILY bupropion HCl 300 mg tablet extended release 24 hr 300 mg PO DAILY escitalopram oxalate 20 mg tablet 20 mg PO DAILY Vraylar 3 mg capsule 3 mg PO DAILY esomeprazole magnesium [Nexium] 40 mg capsule,delayed release(DR/EC) 40 mg PO DAILY Qty: 30 5RF Citrucel 500 mg tablet 500 mg PO DAILY Qty: 30 2RF Rx Instructions: take it with full glass of water Stand Alone Forms: Work/School Release Print Language: Kittitian
[2025-05-18 23:37] LABS: MANUAL DIFF FLAG NO
[2025-05-18 23:42] LABS: Hematocrit 43.2 % (42.0-52.0); Hemoglobin 14.9 g/dl (14.0-18.0); Imm Gran Abs Auto 0.03 X10*3/uL (0.00-0.03); Imm Gran Pct Auto 0.4 % (0.0-0.4); Lymphocytes Absolute Auto 1.8 X10*3/uL (1.2-4.9); Mean Corpuscular HGB Conc 34.5 g/dl (31.0-36.0); Mean Corpuscular Hemoglobin 29.2 pg (27.0-33.0); Mean Corpuscular Volume 84.5 fL (80.0-98.0); NRBC Abs Auto 0.000 X10*3/uL (0.0-0.012); NRBC Pct Auto 0.0 /100WBC (0.0-0.2); Platelet Count 219 X10*3/uL (160-400); Red Blood Count 5.11 X10*6/uL (4.60-5.80); White Blood Count 8.4 X10*3/uL (4.8-10.8)
[2025-05-18 23:53] LABS: Alanine Aminotransferase 21 U/L (0-40); Albumin Level 4.7 g/dL (3.5-5.0); Alkaline Phosphatase 65 U/L (39-117); Anion Gap 13 (12-20); Aspartate Amino Transferase 18 U/L (5-37); Blood Urea Nitrogen 15 mg/dL (9-16); Calcium 9.2 mg/dL (8.4-10.2); Carbon Dioxide 25 mmol/L (22-29); Chloride 108 mmol/L (96-108); Creatinine Clr Calc Pharmacy 110.4; Estimated Glomerular Filt Rate > 60; Lipase 77 U/L (8-78); Potassium 4.1 mmol/L (3.3-5.1); Sodium 142 mmol/L (135-145); Total Protein 7.1 g/dL (6.5-8.0)
--- OUTSIDE RECORDS SUMMARY | 2025-05-19 00:11 | XMS_ITS | Patient Health Record ---
Author Organization [facility] Address [address] [id number] Support Name Relationship Address Phone DraganNorisVicente Emergency Contact Unknown Unavail able Constantine Torres Guarantor Unknown [phone] Allergies Allergen (clinical drug ingredient) Drug/Non Drug Allergy documented on EMR Reaction Allergy Type Onset Date Status copper Copper Unknown Drug Allergy Active Reason For Referral No Information Medications Medication SIG (Take, Route, Frequency, Duration) Notes Start Date End Date Status Vraylar Active LaMICtal Active Doxycycline Hyclate 100 MG 1 tablet Oral ly Twice a day for 7 days 01/13/2024 Active Social History Sex Assigned At : Social History Observation Description Sex Assigned At Male Plan Of Treatment No Information Insurance Providers Payer Name Payer Address Payer Phone Subscriber Number Group Number Insured Name Patient Relationship to Insured Coverage Start Date Coverage End Date [place] MEDICAID ATT CLAIMS [address] [place] [id number] Constantine Torres Self - patient is the insured Medical (General) History Medical History History ICD Code Mental health concerns bipolar disorder
--- OUTSIDE RECORDS SUMMARY | 2025-05-19 00:13 | XMS_ITS | Clinical Summary ---
Author Organization [facility] Address [address] [place] [address] Phone Care Team Providers Care Chaser Apprentice Name Role Phone Angel Ann MD Primary Care Provider [phone] Allergies Active Allergy Reactions Criticality Noted Date Comments Copper 01/21/2025 Medications lidocaine 4 % patch Apply 1 patch topically 1 (one) time each day. 15 each 5 Active methocarbamoL (ROBAXIN) 750 mg tablet Take 1 tablet (750 mg total) by mouth 4 (four) times a day for 10 days. 40 each 5 Active Medical History Medical History Date Comments PTSD (post-traumatic stress disorder) DX:PTSD (post-traumatic stress disorder) Bipolar 1 disorder (CMS/HCC V24, CMS/HCC V28) DX:Bipolar 1 disorder ([facility]) Anxiety DX:Anxiety Adhd DX:ADHD Social History Tobacco Use Types Packs/Day Years Used Date Smoking Tobacco: Never Smokeless Tobacco: Never Alcohol Use Standard Drinks/Week Comments Never 0 (1 standard drink = 0.6 oz pur e alcohol) Sex and Gender Information Value Date Recorded Sex Assigned at Male 01/21/2025 3:31 PM EDT Legal Sex Male 2:27 AM EST Gender Identity Male 01/21/2025 3:31 PM EDT Sexual Orientation Choose not to disclose 2024 3:31 PM EDT Obstetrics History Last Filed Vital Signs Vital Sign Reading Time Taken Comments Blood Pressure 143/96 01/21/2025 3:06 PM EDT Pulse 88 01/21/2025 3:06 PM EDT Temperature 36.9 C (98.4 F) 01/21/2025 3:06 PM EDT Respiratory Rate 15 01/21/2025 3:06 PM EDT Oxygen Saturation 98% 01/21/2025 3:06 PM EDT Inhaled Oxygen Concentration - - Weight 93 kg (205 lb) 01/21/2025 3:06 PM EDT Height 175.3 cm (5' 9 ) 01/21/2025 3:06 PM EDT Body Mass Index 30.27 01/21/2025 3:06 PM EDT Plan of Treatment Health Maintenance Due Date Last Done Comments Hepatitis B Vaccines (3 of 3 - 3-dose series) 09/04/2002 07/10/2002, 11/14/2000 DTaP,Tdap,and Td Vaccines (2 - Td or Tdap) 03/03/2021 03/03/2011 Cholesterol Screening (Lipid Panel) 09/26/2022 HIV Screening 09/26/2022 Hepatitis C Screening 09/26/2022 Social Influencers of Health Screening 09/26/2022 COVID-19 Vaccine (3 - 2023-2 5 season) 2024 04/13/2021, 02/23/2021 Depression Screening 10/24/2024 Influenza Vaccine (#1) 2025 7, 09/01/2016, 08/24/2010 HIB Vaccines Aged Out [...] patient's age to complete this topic Meningococcal B Vaccine Aged Out No l onger eligible based on patient's age to complete this topic Pneumococcal Vaccine: Pediatrics (0 to 5 Years) and At-Risk Patients (6 to 49 Years) Aged Out No longer eligible b ased on patient's age to complete this topic RSV Immunization Patients Under 20 months Aged Out No longer eligible b ased on patient's age to complete this topic Varicella Vaccines Aged Out No longer eligible based on patient's age to complete this topic Insurance [place] - [place] Care Teams Chaser Apprentice Relationship Specialty Start Date End Date Angel Ann MD [address] [place] [address] Dr Funk [place] PCP - General 09/23/22
[2025-05-19 00:23] VITALS: BP 109/68; PULSE 65; RESP 14; TEMP 36.6; O2SAT 97
[2025-05-19] MEDS: Lidocaine HCl Viscous 2 % 15 ML SOLUTION PO (00:33)
[2025-05-19] MEDS: Magnesium Hydrox/Alum Hydrox 30 ML ORAL.SUSP PO (00:34)
[2025-05-19 00:42] VITALS: BP 109/68; PULSE 65; RESP 14; TEMP 36.6; O2SAT 97
== END 2025-05-19 00:43 | disposition home or self-care (01) ==
PROVIDERS: Emergency Provider Emergency Medicine
DX: R10.13 Epigastric pain (principal); R11.0 Nausea; Z79.899 Other long term (current) drug therapy
CPT/HCPCS: 36415; 80053; 82248; 83690; 85025; 99283; 99284

== ENCOUNTER 2025-05-20 21:49 | Emergency (ER) | payer MEDICARE, MEDICAID, SELFPAY ==
[2025-05-20 22:03] VITALS: BP 115/65; PULSE 82; RESP 18; TEMP 36.8; O2SAT 97; BMI 28.5
[2025-05-20 22:21] LABS: MANUAL DIFF FLAG NO
[2025-05-20 22:22] LABS: Hematocrit 44.6 % (42.0-52.0); Hemoglobin 15.6 g/dl (14.0-18.0); Imm Gran Abs Auto 0.03 X10*3/uL (0.00-0.03); Imm Gran Pct Auto 0.3 % (0.0-0.4); Lymphocytes Absolute Auto 2.0 X10*3/uL (1.2-4.9); Mean Corpuscular HGB Conc 35.0 g/dl (31.0-36.0); Mean Corpuscular Hemoglobin 29.5 pg (27.0-33.0); Mean Corpuscular Volume 84.3 fL (80.0-98.0); NRBC Abs Auto 0.000 X10*3/uL (0.0-0.012); NRBC Pct Auto 0.0 /100WBC (0.0-0.2); Platelet Count 223 X10*3/uL (160-400); Red Blood Count 5.29 X10*6/uL (4.60-5.80); White Blood Count 9.7 X10*3/uL (4.8-10.8)
[2025-05-20 22:38] LABS: Alanine Aminotransferase 22 U/L (0-40); Albumin Level 4.7 g/dL (3.5-5.0); Alkaline Phosphatase 63 U/L (39-117); Anion Gap 12 (12-20); Aspartate Amino Transferase 17 U/L (5-37); Blood Urea Nitrogen 18 mg/dL (9-16); Calcium 9.0 mg/dL (8.4-10.2); Carbon Dioxide 27 mmol/L (22-29); Chloride 108 mmol/L (96-108); Creatinine Clr Calc Pharmacy 91.7; Estimated Glomerular Filt Rate > 60; Potassium 4.3 mmol/L (3.3-5.1); Sodium 143 mmol/L (135-145); Total Protein 7.6 g/dL (6.5-8.0)
[2025-05-21 05:26] VITALS: BP 119/68; PULSE 63; RESP 16; TEMP 36.7; O2SAT 98
--- NOTE | 2025-05-21 06:52 | ED.GENADULT ---
HPI - General Adult General Chief complaint: Abdominal Pain Stated complaint: abd cramping Time Seen by Provider: 05/21/25 06:52 History of Present Illness ED Provider: Mayo BURCIAGA narrative: The patient is a 35-year-old male with a history of bipolar disorder who has been having problems with the abdominal cramping for a few days. He came to the emergency room on May 18, on Tuesday, for evaluation and was not felt to have an acute surgical abdomen. Apparently his symptoms persisted and he had some diarrhea yesterday and he came to the emergency room yesterday evening. There was a long wait in the emergency room and he is feeling better this morning at the time of my evaluation. Related Data Home Medications ?Medication ?Instructions ?Recorded ?Confirmed lamotrigine 200 mg tablet 200 mg PO DAILY 01/18/24 07/12/24 bupropion HCl 300 mg 24 hr tablet, 300 mg PO DAILY 02/28/24 07/12/24 extended release escitalopram oxalate 20 mg tablet 20 mg PO DAILY 02/28/24 07/12/24 cariprazine 3 mg capsule (Vraylar) 3 mg PO DAILY 08/03/24 Previous Rx's ?Medication ?Instructions ?Recorded esomeprazole magnesium 40 mg 40 mg PO DAILY #30 caps 08/03/24 capsule,delayed release (Nexium) methylcellulose (laxative) 500 mg 500 mg PO DAILY #30 tabs 08/03/24 tablet (Citrucel) omeprazole 40 mg capsule,delayed 40 mg PO DAILY #30 caps 05/21/25 release Allergies Allergy/AdvReac Type Severity Reaction Status Date / Time copper Allergy Mild Unknown Verified 05/20/25 22:05 Review of Systems Review of Systems: Yes all other systems are reviewed and are negative [facility] Past Medical History Surgical History Hx of colonoscopy Social History Social History Household Members: Family Alcohol intake: current Alcohol intake frequency: holidays/special occasions only Patient Tobacco Use Status: Never used Tobacco Advance Directives: No Advance Directives Information Provided: Yes Physical Exam ED Vital Signs: Vital Signs - 24 hr 05/20/25 22:03 05/21/25 05:26 05/21/25 07:20 Temperature 98.3 F 98.1 F 97.9 F Pulse Rate 82 63 70 Respiratory Rate 18 16 16 Blood Pressure 115/65 119/68 93/51 L Pulse Oximetry 97 98 97 Oxygen Delivery Method Room Air Room Air Room Air 05/21/25 07:26 Temperature 97.9 F Pulse Rate 70 Respiratory Rate 16 Blood Pressure 93/51 L Pulse Oximetry 97 Oxygen Delivery Method Room Air BMI result Body Mass Index 28.5 Const Other: The patient had fallen asleep while waiting to be seen. He awoke easily with gentle stimulation. He awoke to a normal mental status. He did not appear in any distress. He seemed entirely well and comfortable. He moves around easily. Orientation/consciousness: patient oriented x3 HENMT Other: The face is symmetrical. ?Mucous membranes moist. Eyes Other: Pupils are round equal, conjunctivae are clear, extraocular movements intact Neck Neck: Yes normal visual inspection, Yes full ROM and Yes no lymphadenopathy Resp Effort & Inspection: normal respiratory effort Auscultation: clear to auscultation bilaterally Cardio Rate: regular rate Rhythm: regular rhythm Heart sounds: S1 normal heart sound present and S2 normal heart sound present GI Other: The abdomen was soft and nontender Skin Other: The skin is dry and unremarkable Neuro General: patient oriented x3, moves all extremities, no focal motor deficits and CN's II-XI intact bilaterally Extrem Other: There is no calf swelling or tenderness. No asymmetry. No peripheral edema. Medical Decision Making Medical Decision Making [facility] Narrative: The patient is a 35-year-old male who presented for evaluation of abdominal pain. He seems to indicate epigastric discomfort. His labs are unremarkable. He does not appear ill at all. My suspicion for an acute process is very low. Perhaps he has some degree of gastritis. He will be started on a course of omeprazole. He has a psychiatrist who prescribes his psychiatric medications but his PCP recently retired (Dr. Ann) he is still working on getting a new doctor. He requested a work note and was given one. Lab Data 05/20/25 22:18 05/20/25 22:18 Labs: Lab Results 05/20/25 Range/Units 22:18 WBC 9.7 (4.8-10.8) X10*3/uL RBC 5.29 (4.60-5.80) X10*6/uL Hgb 15.6 (14.0-18.0) g/dl Hct 44.6 (42.0-52.0) % MCV 84.3 (80.0-98.0) fL MCH 29.5 (27.0-33.0) pg MCHC 35.0 (31.0-36.0) g/dl RDW 12.9 (11.0-16.0) % Plt Count 223 (160-400) X10*3/uL MPV 9.6 (9.4-12.4) fL Immature Gran % (Auto) 0.3 (0.0-0.4) % Neut % (Auto) 73.6 H (45-73) % Lymph % (Auto) 20.2 (20-40) % [place] % (Auto) 5.0 (2-11) % Eos % (Auto) 0.6 (0-4) % Baso % (Auto) 0.3 (0-2) % Lymph # (Auto) 2.0 (1.2-4.9) X10*3/uL [place] # (Auto) 0.5 (0.1-1.2) X10*3/uL Eos # (Auto) 0.1 (0.0-0.4) X10*3/uL Baso # (Auto) 0.0 (0.0-0.2) X10*3/uL Abs Immat Gran (auto) 0.03 (0.00-0.03) X10*3/uL Absolute Neuts (auto) 7.1 (2.0-8.3) x10*3/uL Absolute Nucleated RBC 0.000 (0.0-0.012) X10*3/uL Nucleated RBC % (auto) 0.0 (0.0-0.2) /100WBC Sodium 143 (135-145) mmol/L Potassium 4.3 (3.3-5.1) mmol/L Chloride 108 (96-108) mmol/L Carbon Dioxide 27 (22-29) mmol/L Anion Gap 12 (12-20) BUN 18 H (9-16) mg/dL Creatinine 1.23 (0.5-1.4) mg/dL Estim Creat Clear Calc 91.7 Estimated GFR > 60 Random Glucose 106 (60-115) mg/dL Calcium 9.0 (8.4-10.2) mg/dL Total Bilirubin 0.3 (0.0-1.0) mg/dL AST 17 (5-37) U/L ALT 22 (0-40) U/L Alkaline Phosphatase 63 (39-117) U/L Total Protein 7.6 (6.5-8.0) g/dL Albumin 4.7 (3.5-5.0) g/dL Discharge Plan Discharge Clinical Impression: Abdominal cramping Patient Disposition: Home, Self-Care Additional Instructions: Your abdominal symptoms might be coming from an acid related problem that we called gastritis. Your testing today seems very reassuring from the point of view of any acutely dangerous process. Please take the omeprazole prescribed once a day for several days to see if it helps with your symptoms. Please continue your efforts to get a new primary care doctor. Return to the emergency room if significantly worse. Prescriptions: New omeprazole 40 mg capsule,delayed release(DR/EC) 40 mg PO DAILY Qty: 30 0RF No Action lamotrigine 200 mg tablet 200 mg PO DAILY bupropion HCl 300 mg tablet extended release 24 hr 300 mg PO DAILY escitalopram oxalate 20 mg tablet 20 mg PO DAILY Vraylar 3 mg capsule 3 mg PO DAILY esomeprazole magnesium [Nexium] 40 mg capsule,delayed release(DR/EC) 40 mg PO DAILY Qty: 30 5RF Citrucel 500 mg tablet 500 mg PO DAILY Qty: 30 2RF Rx Instructions: take it with full glass of water Referrals: [facility] Primary Care, Jannette [Provider Group, Internal Medicine] [facility] [place] Primary Care, Swapnil [Provider Group, Internal Medicine] [facility] [place] [facility] Primary Care, [facility] [Provider Group, Primary Care] Stand Alone Forms: Work/School Release Interventions: ED Discharge Assessment Last Done: 05/21/25 07:26 Discharge Date/Time: 05/21/25 07:28 Print Language: Lithuanian
[2025-05-21 07:20] VITALS: BP 93/51; PULSE 70; RESP 16; TEMP 36.6; O2SAT 97
[2025-05-21 07:26] VITALS: BP 93/51; PULSE 70; RESP 16; TEMP 36.6; O2SAT 97
== END 2025-05-21 07:28 | disposition home or self-care (01) ==
PROVIDERS: Emergency Provider Emergency Medicine
DX: R10.13 Epigastric pain (principal); Z79.899 Other long term (current) drug therapy
CPT/HCPCS: 36415; 80053; 85025; 99283

== ENCOUNTER 2025-06-20 14:49 | Outpatient (AMB) | payer MEDICARE, MEDICAID, SELFPAY ==
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
[2025-06-20 14:59] VITALS: BP 102/78; PULSE 88; RESP 16; TEMP 36.7; O2SAT 96; BMI 28.9
--- OUTSIDE RECORDS SUMMARY | 2025-06-20 15:26 | XMS_ITS | Clinical Summary ---
Author Organization [facility] Address [address] [place] [address] Care Team Providers Care Needle Straightener Name Role Phone Angel Ann MD Primary Care Provider [phone] Allergies No known active allergies Medications Medication [...] 99 09/23/2022 11:51 AM EST Temperature 37.3 C (99.2 F) 09/23/2022 11:51 AM EST Respiratory Rate 17 09/23/2022 11:51 AM EST [...] season) 2024 04/13/2021, 02/23/2021 Influenza Vaccine (#1) 2025 7, 09/01/2016, 08/24/2010 Pneumococcal Vaccine Aged Out No long er eligible based on patient's age to complete this topic RSV Ped < 20 months Aged Out No longe r eligible based on patient's age to complete this topic Care Teams Needle Straightener Relationship Specialty Start Date End Date Angel Ann MD [address] [place] [id number] PCP - General Backrest Assembler 09/23/22
--- OUTSIDE RECORDS SUMMARY | 2025-06-20 15:28 | XMS_ITS | Patient Health Record ---
Author Organization [facility] Address [address] [id number] Support Name Relationship Address Phone Vicente Archibald Emergency Contact Unknown Unavail able Brian Constantine Guarantor Unknown [phone] Allergies Allergen (clinical drug ingredient) Drug/Non Drug Allergy documented on EMR Reaction Allergy Type Onset Date Status copper Copper Unknown Drug Allergy Active Reason For Referral No Information Medications Medication SIG (Take, Route, Frequency, Duration) Notes Start Date End Date Status Vraylar Active LaMICtal Active Doxycycline Hyclate 100 MG Tablet 1 tablet Orally Twice a day; Duration: 7 days 01/13/2024 Active Social History Sex Assigned At : Social History Observation Description Sex Assigned At Male Social History HIV Risk Assessment Social Info Question Answer Notes Additional Questions Is an HIV Risk Assessment being c onducted? Yes Have you been tested for HIV before? Yes Reproductive Life Plan: Social Info Question Answer Notes Reproductive Life Plan: Do you want to h ave children? No, I don't want to have children Human Trafficking: Social Info Question Answer Notes Human Trafficking Experienced: No Sexual History: Social Info Question Answer Notes Sexual History: Sexual History Reviewed: Partner s, Practices, Protection/Past STIs, Prevention of , ___ Currently sexually active? Yes Sexually active with: Women Number of female partners 1 Your sexual activities include: oral intercourse, vaginal intercourse Date of last unprotected intercourse: 12/15/2023 Number of partners in past 3 months: 1 Number of partners in past year: 3 Counseling Provided: Social Info Question Answer Notes Counseling Provided Please indicate the length of time, in minutes, that counseling was provided. 7 Counseling Was Provided By: daya Drugs/Alcohol: Social Info Question Answer Notes Drug/Alcohol Use Do you or have you used drugs? Yes, c urrently By what route are you taking drugs? Please check all that apply: Smoking Which drug(s) do you smoke? Marijuana Do you or have you used alcohol? No Food Access: Social Info Question Answer Notes Food Access The Client's current access to food is Secure Food Access Relationships: Social Info Question Answer Notes Relationships Has the client exper ienced any of the following: Reproductive Coercion, Harmful Relationships, Sexual Coercion, Exchanged Sex for. . . Emotionally Yes Currently: No clt has a therapist Physically: No Sexually: No Been forced or pressured into sexual activities? No drugs, snf, safety, other. No Housing Social Info Question Answer Notes Housing The client's current living situation is: stable housing Tobacco Use: Social Info Question Answer Notes Tobacco Use: Do you/have you used tobacco? No Tobacco Smoking Status Never smoker Plan Of Treatment No Information Insurance Providers Payer Name Payer Address Payer Phone Subscriber Number Group Number Insured Name Patient Relationship to Insured Coverage Start Date Coverage End Date [place] ATT CLAIMS [address] [place] [id number] Constantine Torres Self - patient is the insured Medical (General) History Medical History History ICD Code Mental health concerns bipolar disorder
--- OUTSIDE RECORDS SUMMARY | 2025-06-20 15:30 | XMS_ITS | Clinical Summary ---
Author Organization [facility] Address [address] [place] [address] Phone Care Team Providers Care Keeler Polygraph Operator Name Role Phone Angel Ann MD Primary Care Provider [phone] Allergies Active Allergy Reactions Criticality Noted Date [...] (CMS/HCC V24, CMS/HCC V28) DX:Bipolar 1 disorder ([facility]) Anxiety DX:Anxiety Adhd DX:ADHD Social History Tobacco [...] topic Insurance [place] Care Teams Keeler Polygraph Operator Relationship Specialty Start Date End Date Angel Ann MD [address] [place] [address] [place] PCP - General 09/23/22
== END 2025-06-20 16:33 | disposition home or self-care (01) ==
LOC: HO.HMCHD 14:50
PROVIDERS: Visit Provider Physician Assistant Medical
DX: F31.9 Bipolar disorder, unspecified (principal); F90.9 Attention-deficit hyperactivity disorder, unspecified type; R10.13 Epigastric pain; M54.50 Low back pain, unspecified

== ENCOUNTER → 2025-06-20 14:49 | Outpatient (BNVA) | payer MEDICARE, MEDICAID, SELFPAY | PROVIDERS: Visit Provider Physician Assistant Medical | DX: Z76.89 Persons encountering health services in other specified circumstances (principal); F31.9 Bipolar disorder, unspecified; F90.9 Attention-deficit hyperactivity disorder, unspecified type; R10.13 Epigastric pain; M54.50 Low back pain, unspecified; Z79.899 Other long term (current) drug therapy; Z13.30 Encounter for screening examination for mental health and behavioral disorders, unspecified; Z13.39 Encounter for screening examination for other mental health and behavioral disorders | CPT/HCPCS: 96127; 99202 ==

== ENCOUNTER 2025-07-05 08:39 | Outpatient (AMB) | payer MEDICARE, MEDICAID, SELFPAY ==
[2025-07-05 08:45] VITALS: BP 112/68; PULSE 80; O2SAT 97; BMI 29.5
--- NOTE | 2025-07-05 08:45 | A.OFFVIS_ITS ---
Vital Signs 07/05/25 08:45 Height 5 ft 9 in Weight 200 lb BMI 29.5 BP 112/68 Blood Pressure Location Rt brachial Position Sitting Pulse 80 Pulse Source Pulse Oximeter Pulse Oximetry (%) 97 Oxygen Delivery Method Room Air Intake Visit Reasons: 6 mo f/u Gerd r/S 05/14 Intake Note: ESTABLISHED PATIENT for mgmt of epigastric pain + bloating. CC; Pt denies any GI sx or concerns at this time. Pt does report having some difficulty getting his citrucel but he does want to keep taking it. Pt also reports some occasional abd pain which he believes is related to his hiatal her huber. Outreach Educator Required: No Accompanied by: Self / Same As Patient Allergies copper Allergy (Mild, Verified 06/20/25 14:51) Unknown HPI HPI 6 mo f/u Gerd r/S 05/14: Details: LAST VISIT: Postprandial epigastric pain Postprandial abdominal bloating Postprandial diarrhea GERD (gastroesophageal reflux disease) Abdominal bloating Abdominal pain Eosinophilic esophagitis Plan Patient will continue taking Nexium daily. May take fiber to regulate his bowels. Does admit to occasional softer stools postprandially. Patient was encouraged to avoid dietary triggers and late night snacking. Staying upright for minimum 3 hours after meals discussed with patient. Patient will be referred to allergy/immunology as eosinophilic esophagitis found on biopsy. Referral sent. Patient will follow-up in 6 months. He will call our office if he will have any GI concerning symptoms. He is agreeable to this plan and verbalizes understanding of instructions. He was given the opportunity to ask questions and all questions answered. ? Thank you for allowing me to participate in his care Referrals Allergy & Immunology Referral K20.0 Discontinued famotidine Discontinued Reason: Doctor's Order 20 mg PO BEDTIME 90 tabs 1RF K21.9 TODAY'S VISIT Patient is here today for follow-up. Patient reports that he has been doing well since last visit. Patient tries to avoiding dietary triggers. Patient is eating smaller meals and more often. Avoiding fried and greasy food. Patient denies dyspepsia, dysphagia or odynophagia. Occasional abdominal bloating depending on what he eats. Occasional loose stools. Insurance does not cover fiber for him. Patient reports that it was helping when he was taking it. Patient denies any other GI concerning symptoms. [facility] Medical History Epigastric pain ADHD Bipolar depression Low back pain Surgical History Hx of colonoscopy Social History Household Members: Family Housing: Apartment Alcohol intake: current Alcohol intake frequency: holidays/special occasions only Patient Tobacco Use Status: Never used Tobacco e-Cigarette/Vaping Use: Never Used service: No Current occupational status: employed Physical Exam Vital Signs: Last Vital Signs Pulse 80 07/05/25 08:45 BP 112/68 07/05/25 08:45 Pulse Ox 97 07/05/25 08:45 Oxygen Delivery Method Room Air 07/05/25 08:45 BMI result Body Mass Index 29.5 Const General: healthy appearing and no acute distress Nutritional Appearance: obese Orientation/consciousness: patient oriented x3 Resp Effort & Inspection: normal respiratory effort, able to speak in complete sentences, no tracheal deviation and symmetric chest movement Auscultation: clear to auscultation bilaterally Cardio Rate: regular rate GI Inspection: Yes normal to inspection, No distended and Yes obesity Palpation (GI): Soft to palpation, not firm, nontender and No hepatosplenomegaly present Auscultation: normal bowel sounds General: Yes no CVA tenderness Back/Spine/Pelvis Back: no CVA tenderness Skin General skin exam: elasticity normal, turgor normal and dry skin Neuro General: patient oriented x3 Psych Appearance: grossly normal Mental Status: mental status grossly normal Assessment & Plan Assessment & Plan (1) Epigastric pain: Comment: improved Code(s): R10.13 - Epigastric pain Category: Medical (2) IBS (irritable bowel syndrome): Code(s): K58.9 - Irritable bowel syndrome, unspecified Qualifiers: Irritable bowel syndrome type: with both diarrhea and constipation Qualified Code(s): K58.2 - Mixed irritable bowel syndrome Plan Patient will continue omeprazole. Avoid dietary triggers and late night snacking. Staying upright for minimum 3 hours after meals discussed with patient. Patient will take fiber supplement will try to get stool her brand. Follow-up with us as needed. Patient is agreeable to this plan and verbalizes understanding of instructions. He was given the opportunity to ask questions and all questions answered. Thank you for allowing me to participate in his care Coding Level of Care Code Est Pt Level 3 (88415) Diagnoses Epigastric pain R10.13 Irritable bowel syndrome with both constipation and diarrhea K58.2 Irritable bowel syndrome type: with both diarrhea and constipation Time Spent (min) 25 Comment 15 minutes spent with patient and additional 10 minutes spent reviewing his records
--- OUTSIDE RECORDS SUMMARY | 2025-07-05 09:17 | XMS_ITS | Patient Health Record ---
Author Organization [facility] Address [address] [id number] Support Name Relationship Address Phone Vicente Archibald Emergency Contact Unknown Unavail able BrianConstantine Guarantor Unknown [phone] Allergies Allergen (clinical drug ingredient) Drug/Non Drug [...] or pressured into sexual activities? No drugs, senior care, safety, other. No Housing Social Info Question [...] Insured Coverage Start Date Coverage End Date [place] ATT CLAIMS [address] [place] [id number] Constantine Torres Self - patient is the insured Medical (General) History Medical History History ICD Code Mental health concerns bipolar disorder
--- OUTSIDE RECORDS SUMMARY | 2025-07-05 09:17 | XMS_ITS | Clinical Summary ---
Author Organization [facility] Address [address] [place] [address] Care Team Providers Care Qual Research Manager Name Role Phone Angel Ann MD Primary Care Provider [phone] Allergies No known active allergies Medications Medication [...] Tdap) 03/03/2021 03/03/2011 COVID-19 Vaccine (3 - 2024-2 6 season) 2025 04/13/2021, 02/23/2021 Influenza Vaccine (#1) 2025 7, 09/01/2016, 08/24/2010 Pneumococcal Vaccine Aged Out No long er eligible based on patient's age to complete this topic RSV Ped < 20 months Aged Out No longe r eligible based on patient's age to complete this topic Care Teams Qual Research Manager Relationship Specialty Start Date End Date Angel Ann MD [address] [place] [address] PCP - General Service Officer 09/23/22
--- OUTSIDE RECORDS SUMMARY | 2025-07-05 09:19 | XMS_ITS | Clinical Summary ---
Author Organization [facility] Address [address] [place] [address] Phone Care Team Providers Care 7Th Grade Social Studies Teacher Name Role Phone Angel Ann MD Primary Care Provider [phone] Allergies Active Allergy Reactions Criticality Noted Date [...] (CMS/HCC V24, CMS/HCC V28) DX:Bipolar 1 disorder ([facility]) Anxiety DX:Anxiety Adhd DX:ADHD Social History Tobacco [...] 09/26/2022 Social Influencers of Health Screening 09/26/2022 Depression Screening 10/24/2024 COVID-19 Vaccine (3 - 2024-2 6 season) [...] topic Insurance [place] - [place] Care Teams 7Th Grade Social Studies Teacher Relationship Specialty Start Date End Date Angel Ann MD [address] [place] [address] Dr Funk [place] PCP - General 09/23/22
== END 2025-07-05 09:22 | disposition home or self-care (01) ==
LOC: HO.HGI 08:40
PROVIDERS: Family Provider Physician Assistant Medical; PCP Physician Assistant Medical; Visit Provider Nurse Practitioner Family
DX: R10.13 Epigastric pain (principal); K58.2 Mixed irritable bowel syndrome
CPT/HCPCS: 99213

== ENCOUNTER → 2025-07-05 08:39 | Outpatient (BNVA) | payer MEDICARE, MEDICAID, SELFPAY | PROVIDERS: Family Provider Physician Assistant Medical; PCP Physician Assistant Medical; Visit Provider Nurse Practitioner Family | DX: R10.13 Epigastric pain (principal); K58.2 Mixed irritable bowel syndrome | CPT/HCPCS: 99212 ==